=== PATIENT | female | born 1995 | race Caucasian/White ===

== ENCOUNTER 2020-09-21 12:27 | Outpatient (REF) | payer MEDICARE, MEDICAID, SELFPAY ==
[2020-09-21 13:55] LABS: MANUAL DIFF FLAG NO
[2020-09-21 14:03] LABS: Basophils Percent Auto 0.1 % (0-2); Eosinophils Percent Auto 0.5 % (0-4); Hematocrit 43.2 % (37-47); Hemoglobin 14.3 g/dl (12.0-16.0); Imm Gran Abs Auto 0.01 X10*3/uL (0.00-0.03); Imm Gran Pct Auto 0.1 % (0.0-0.4); Lymphocytes Absolute Auto 1.9 X10*3/uL (1.2-4.9); Lymphocytes Percent Auto 23.4 % (20-40); Mean Corpuscular HGB Conc 33.1 g/dl (31.0-35.0); Mean Corpuscular Hemoglobin 29.4 pg (27.0-33.0); Mean Corpuscular Volume 88.7 fL (80-98); Mean Platelet Volume 9.5 fL (9.4-12.3); Monocytes Absolute Auto 0.3 X10*3/uL (0.1-1.2); Monocytes Percent Auto 3.8 % (2-11); Neutrophils Absolute Auto 5.8 X10*3/uL (2.0-8.3); Neutrophils Percent Auto 72.1 % (45-73); Platelet Count 281 X10*3/uL (160-400); Red Blood Count 4.87 X10*6/uL (4.20-5.50); Red Cell Distribution Width 11.3 % (11.0-16.0); White Blood Count 8.1 X10*3/uL (4.8-10.8)
[2020-09-21 14:35] LABS: Alanine Aminotransferase 13 U/L (0-31); Anion Gap 12 (12-20); Aspartate Amino Transferase 16 U/L (5-31); Blood Urea Nitrogen 9 mg/dL (9-16); Calcium 9.4 mg/dL (8.4-10.2); Carbon Dioxide 27 mmol/L (22-29); Chloride 105 mmol/L (96-108); Cholesterol 155 mg/dL; Estimated Glomerular Filt Rate > 60; Glucose Fasting 92 mg/dL (60-99); HDL Cholesterol 51 mg/dL; LDL Cholesterol Calculated 94 mg/dl; Potassium 4.3 mmol/L (3.3-5.1); Sodium 140 mmol/L (135-145); Triglycerides 50 mg/dL
[2020-09-21 14:58] LABS: TSH reflex Free T4 1.65 uIU/mL (0.32-4.0); Vitamin D 25-OH Total 15.1 ng/mL (>30)
== END 2020-09-21 12:28 | disposition home or self-care (01) ==
LOC: HO.HMGCLDS 12:27
PROVIDERS: PCP Internal Medicine; Visit Provider Internal Medicine
DX: Z00.01 Encounter for general adult medical examination with abnormal findings (principal); I10 Essential (primary) hypertension; R00.2 Palpitations
CPT/HCPCS: 36415; 80048; 80061; 82306; 84443; 84450; 84460; 85025

== ENCOUNTER 2023-04-04 15:39 | Outpatient (AMB) | payer OTHER, SELFPAY ==
--- NOTE | 2023-04-04 15:40 | A.OFFPC_ITS ---
Vital Signs 04/04/23 15:41 Height 5 ft 3 in Weight 219 lb BMI 38.8 BP 112/78 Blood Pressure Location Lt brachial Position Sitting Pulse 81 Pulse Source Pulse Oximeter Temp Source Skin Pulse Oximetry (%) 98 Oxygen Delivery Method Room Air Intake Visit Reasons: Transfer of care [facility] Intake Note: Patient is a new patient here to establish care Director Music Required: No Allergies No Known Allergies [No Known Allergies*] Allergy (Verified 04/04/23 15:54) Medication List - Last Reconciled 04/04/23 by ANAND Garces bupropion HCl mg PO etonogestrel (Nexplanon) subdermal Tobacco use date assessed: 04/04/23 Dental Screening Dental Screen Date: 04/04/23 Did you have a dental visit in the last 12 months?: Yes Did you have a dental problem in the last 6 months where you did not have access to dental care?: No Was dental information given to patient?: Patient has dentist HPI Transfer of care [facility] HPI Details Patient is a 28-year-old female who presents today to transfer care from Dr. Lemus. Medical history significant for anxiety-followed by Psychiatry Dr. Kitchen and therapist, IBS-reports abdominal bloating and diarrhea for few years now-reports watery bowel movement yesterday-would like to be seen by GI specialist, obesity-interested in weight management referral. A lso reports has Nexplanon and would like to be seen by gynecology for control management. Patient also reports issues with menstrual cycles, reports hot flashes - interested in obstetrics and gynecology professor consult. [facility] No shortness of breath or chest pain. [facility] Medical History Generalized anxiety disorder IBS (irritable bowel syndrome) Intermittent palpitations Obesity (BMI 30-39.9) Vitamin D deficiency Surgical History History of hemorrhoidectomy History of incision and drainage Family History Father CAD (coronary artery disease) HTN (hypertension) Bipolar disorder Substance use disorder Mental health disorder Mother Thyroid disorder Bipolar disorder Substance use disorder Mental health disorder Maternal Aunt Bipolar disorder Substance use disorder Mental health disorder Maternal Uncle Myocardial infarction Bipolar disorder Substance use disorder Mental health disorder Paternal Aunt Bipolar disorder Substance use disorder Mental health disorder Paternal Uncle Bipolar disorder Substance use disorder Mental health disorder Social History Housing: House Alcohol intake: never Patient Tobacco Use Status: Never used Tobacco e-Cigarette/Vaping Use: Never Used service: No Current occupational status: employed and unemployed Cognitive needs: No Hearing needs: No Vision needs: No Questionnaire PHQ-9 Over the last 2 weeks, how often have you been bothered by any of the following problems? 1. Little interest or pleasure in doing things: several days 2. Feeling down, depressed, or hopeless: several days 3. Trouble falling or staying asleep, or sleeping too much: not at all 4. Feeling tired or having little energy: not at all 5. Poor appetite or overeating: not at all 6. Feeling bad about yourself - or that you are a failure or have let yourself or your family down: not at all 7. Trouble concentrating on things, such as reading the newspaper or watching television: not at all 8. Moving or speaking so slowly that other people could have noticed. Or the opposite - being so fidgety or restless that you have been moving around a lot more than usual: not at all 9. Thoughts that you would be better off or of hurting yourself in some way: not at all Total score: 2 Depression Screening Interpretation: Negative 13253 - PHQ-9 Billing: Yes Source: Developed by Drs. Shashank Modi, Macrina Goldstein, Rupert Carbajal and colleagues, with an educational khoa from [employer]. Thrive Questionnaire Date Thrive assessed: 04/04/23 I am a: Patient What is your living situation today?: I have a steady place to live Within the past 12 months, did the food you bought not last and you didn't have the money to get more?: Never true Within the past 12 months, did you worry whether your food would run out before you got money to buy more?: Never true Do you have trouble paying for medicines?: No Do you have trouble getting transportation to medical appointments?: No Do you have trouble paying your heating and electricity bill?: No Do you have trouble taking care of your child, family member or friend?: No Do you have trouble with day-to-day activities such as bathing, preparing meals, shopping, managing finances, etc.?: No Are you currently unemployed and looking for a job?: No Are you interested in more education?: No Currently or been in a relationship where the following occur: no concerns reported AUDIT C Alcohol Use Questionnaire (AUDIT-C) 1. How often do you have a drink containing alcohol?: Never Total Score: 0 Score Reviewed/Action Taken: No VELIA-7 AMB Questionnaire VELIA-7 Date VELIA - 7 assessed: 04/04/23 Feeling nervous, anxious, or on edge: 3 = Nearly every day Not being able to stop or control worryin = Nearly every day Worrying too much about different things: 0 = Not at all Trouble relaxin = Not at all Being so restless that it is hard to sit still: 0 = Not at all Becoming easily annoyed or irritable: 0 = Not at all Feeling afraid as if something awful might happen: 0 = Not at all Total VELIA-7 score (0-4 normal; 5-9 mild; 10-14 moderate; 15-21 severe): 6 Source: Developed by Drs. Shashank Modi, Macrina Goldstein, Rupert Carbajal and colleagues, with an educational khoa from [employer]. VELIA-7 Assessment Billing VELIA-7 Assessment Tool: VELAI-7 Assessment 87109 Review of Systems Const Denies body aches, Denies chills, Denies fever(s) and Denies headache(s) Eyes Denies change in vision ENT Denies dizziness, Denies otalgia, Denies headache(s), Denies nasal discharge, Denies sinus pain and Denies sore throat Card Denies chest pain, Denies edema, Denies lightheadedness and Denies dyspnea Resp Denies cough, Denies dyspnea and Denies wheezing GI Denies abdominal pain, Reports bloating, Denies constipation, Reports diarrhea, Denies nausea and Denies vomiting Reports as per HPI and Denies dysuria Musc Denies myalgias, Denies arthralgias and Denies joint swelling Skin/Breast Denies rash Neuro Denies dizziness and Denies headache(s) Aller/Immun Denies wheezing Physical exam (Primary Care) Vital Signs: Last Vital Signs Pulse 81 04/04/23 15:41 BP 112/78 04/04/23 15:41 Pulse Ox 98 04/04/23 15:41 Oxygen Delivery Method Room Air 04/04/23 15:41 BMI result Body Mass Index 38.8 Tobacco/Smoking Status: Tobacco use Status Tobacco use date assessed 04/04/23 04/04/23 15:43 Patient Tobacco Use Status Never used Tobacco 04/04/23 15:43 e-Cigarette/Vaping Use Never Used 04/04/23 15:43 PHQ-9: PHQ-9 Score PHQ-9: Total score 2 04/04/23 15:54 Depression Screening Interpretation: Negative Thrive Assessment: Date of Thrive Assessment Date Thrive assessed 04/04/23 04/04/23 15:43 Currently or been in a relationship where the following occur: no concerns reported Const General: cooperative and no acute distress Orientation/consciousness: patient oriented x3 HENMT Head: Yes normocephalic and Yes atraumatic Ears: TM's normal bilaterally Face and sinus: Yes sinuses nontender Mouth: oropharynx normal and moist mucous membranes Throat: Yes posterior oropharynx normal Eyes General: appearance normal, both eyes and all related structures Pupils: Equal, round and reactive pupils present EOM: EOMs intact bilaterally Neck Neck: Yes normal visual inspection, Yes full ROM and Yes no lymphadenopathy Thyroid: Thyroid normal Resp Effort & Inspection: normal respiratory effort and able to speak in complete sentences Auscultation: clear to auscultation bilaterally, no crackles, no rales, no rhonchi and no wheezes Cardio Rate: regular rate Rhythm: regular rhythm Heart sounds: S1 normal heart sound present, S2 normal heart sound present and no murmurs GI Palpation (GI): Soft to palpation, not firm, Tenderness to palpation present (GI) in the epigastrum (mild ), no guarding, not rigid and no hepatosplenomegaly Auscultation: normal bowel sounds General: No CVA tenderness Back/Spine/Pelvis Back: No CVA tenderness Skin General skin exam: no rashes or lesions noted Neuro General: patient oriented x3 Cranial nerves: Yes Equal, round and reactive pupils present Gait exam (Neuro): Normal gait present Extrem General: Yes full ROM and No edema Assessment and Plan Assessment & Plan (1) control counseling: Code(s): Z30.09 - Encounter for other general counseling and advice on contraception Plan: Gynecology referral (2) Obesity (BMI 30-39.9): Code(s): E66.9 - Obesity, unspecified Plan: Healthy food choices and exercise as tolerated Weight management referral (3) IBS (irritable bowel syndrome): Code(s): K58.9 - Irritable bowel syndrome without diarrhea Plan: GI referral for an evaluation and treatment Start simethicone t.i.d.-q.i.d. p.r.n. for abdominal bloating (4) Generalized anxiety disorder: Comment: Followed by Dr. Henry Kitchen Code(s): F41.1 - Generalized anxiety disorder Plan: Continue to follow-up with Psychiatry Dr. Kitchen and therapist Plan Follow-up in 6 months for PE Orders: Orders Vitamin B12 and Folate 04/04/23 K58.9 - Irritable bowel syndrome without diarrhea Comprehensive [facility]mith. Panel Fast 04/04/23 K58.9 - Irritable bowel syndrome without diarrhea Lipid Panel 04/04/23 K58.9 - Irritable bowel syndrome without diarrhea TSH reflex Free T4 04/04/23 K58.9 - Irritable bowel syndrome without diarrhea Vitamin D 25-OH Total 04/04/23 K58.9 - Irritable bowel syndrome without diarrhea Complete Blood Count Auto Diff 04/04/23 K58.9 - Irritable bowel syndrome without diarrhea Referrals Gastroenterology Referral K58.9 - Irritable bowel syndrome without diarrhea DESKTOP PUBLISHING SPECIALIST Referral Z30.09 - Encounter for other general counseling and advice on contraception Medical Weight Management Referral E66.9 - Obesity, unspecified Tilting Saw Operator Nutrition Referral E66.9 - Obesity, unspecified Medications: New simethicone (Gas Relief (simethicone)) 80 mg PO TID-QID PRN 30 tabs 0RF abdominal distention K58.9 - Irritable bowel syndrome without diarrhea Coding Level of Care Code Est Pt Level 3 (75955) Diagnoses control counseling Z30. Obesity (BMI 30-39.9) E66.9 IBS (irritable bowel syndrome) K58.9 Generalized anxiety disorder F41.1 Additional Codes VELIA-7 Assessment Billing - VELIA-7 Assessment Tool: VELIA-7 Assessment 28914 ([id number])
[2023-04-04 15:41] VITALS: BP 112/78; PULSE 81; O2SAT 98; BMI 38.8
== END 2023-04-04 16:18 | disposition home or self-care (01) ==
PROVIDERS: PCP Nurse Practitioner Family; Visit Provider Nurse Practitioner Family
DX: K58.9 Irritable bowel syndrome, unspecified (principal); E66.9 Obesity, unspecified; F41.1 Generalized anxiety disorder; Z68.38 Body mass index [BMI] 38.0-38.9, adult; Z30.09 Encounter for other general counseling and advice on contraception
CPT/HCPCS: 99213

== ENCOUNTER 2023-05-17 13:10 | Outpatient (AMB) | payer MEDICARE, SELFPAY ==
--- NOTE | 2023-05-17 13:12 | A.OFFVIS_ITS ---
Intake VS Expanded 05/17/23 13:14 05/27/23 20:52 Height 5 ft 3 in 5 ft 3 in Weight 222 lb 14.197 oz 223 lb BMI 39.5 39.5 Intake Visit Reasons: Obesity, unspecified Allergies No Known Allergies [No Known Allergies*] Allergy (Verified 04/04/23 15:54) HPI Nutrition Presentation Details Pt presents for MNT for obesity . The Pt was referred by primary care provider Natasha MICHEL from [facility] Typical meal intake B: refresher from dunking , turkey sausage Croatian muffin L : salad , vegetables , chicken, or shrimp white rice, water D: starch/prot/non starchy veg, water snck: fruit/pretzel/yogurt/chips weekends, no meal routine Food frequency fruits: 0/1/d fish 1 x/wk vegetables 5 x/wk starches > 15 serving/d eoth/smoking denies physical activity : sedentary: once /wk may go to the gym TYS-Plqehzu-Uc.or Equation Height 5 ft 3 in Weight 223 lb Resting Metabolic Rate 1702.02 Calculated Activity Level Sedentary Calories Needed to Maintain Weight 2042.42 Diagnosis Nutrition problem #1 excessive energy intake As related to (etiology) #1 diagnosis As evidenced by (sign/symptom) #1 knowledge deficit of diet Monitoring/Goals Nutrition problem monitoring level of knowledge/skill and weight Learning/Education Readiness to learn good Stages of change contemplation Educational materials provided Yes (meal planning ) Most Recent Diabetes Results: Cholesterol 155 mg/dL 09/21/20 HDL Cholesterol 51 mg/dL 09/21/20 Triglycerides 50 mg/dL 09/21/20 Creatinine 0.73 mg/dL (0.5-1.4) 09/21/20 Blood Urea Nitrogen 9 mg/dL (9-16) 09/21/20 Sodium 140 mmol/L (135-145) 09/21/20 Potassium 4.3 mmol/L (3.3-5.1) 09/21/20 Chloride 105 mmol/L (96-108) 09/21/20 Carbon Dioxide 27 mmol/L (22-29) 09/21/20 Calcium 9.4 mg/dL (8.4-10.2) 09/21/20 AST 16 U/L (5-31) 09/21/20 ALT 13 U/L (0-31) 09/21/20 [facility] Medical History Generalized anxiety disorder IBS (irritable bowel syndrome) Intermittent palpitations Obesity (BMI 30-39.9) Vitamin D deficiency Surgical History History of hemorrhoidectomy History of incision and drainage Family History Father CAD (coronary artery disease) HTN (hypertension) Bipolar disorder Substance use disorder Mental health disorder Mother Thyroid disorder Bipolar disorder Substance use disorder Mental health disorder Maternal Aunt Bipolar disorder Substance use disorder Mental health disorder Maternal Uncle Myocardial infarction Bipolar disorder Substance use disorder Mental health disorder Paternal Aunt Bipolar disorder Substance use disorder Mental health disorder Paternal Uncle Bipolar disorder Substance use disorder Mental health disorder Social History Housing: House Alcohol intake: never Patient Tobacco Use Status: Never used Tobacco e-Cigarette/Vaping Use: Never Used service: No Current occupational status: employed and unemployed Cognitive needs: No Hearing needs: No Vision needs: No Assessment & Plan Assessment & Plan (1) Obesity (BMI 30-39.9): Code(s): E66.9 - Obesity, unspecified Plan: wt: 101 kg Est kcal needs as per MSJ: 2000 (40% carb, 30% protein/fat) Est fluid needs as per 25-30 ml/d: 2500- 3000 Est prot per day as per 1 g/kg bw: 101 Recommend fiber intake : 8-10 g per day and gradually increase to 25-28 g per day for women and 35-38 g for men or as tolerated Recommend sodium intake per day : less than 2000 mg Educated patient on: ( R = reviewed V = verbalizes understanding N/R = needs review N/A = not applicable * Food sources of carbohydrate, adequate serving sizes and its role in various health conditions: R * Differences between complex carbohydrates a simple carbohydrates, role of fiber in diet: R * Differences between types of fats and role in diet (mono on saturated fat fatty acids, saturated fatty acids, trans fats): R * Food sources of sodium in salt and healthy modifications for heart health in kidney health: R * Vitamins and minerals: R * Healthy plate method concept: R = * Physical activity: Benefits a precaution: R Patient Instructions: work on reducing portion size at night time reducing carbs to 30 g or less (yogurt and a fruit practice mindful eating see list of ideas printed Coding Level of Care Code Nutr Indiv Intake (46715) Diagnoses Obesity (BMI 30-39.9) E66.9 Time Spent (min) 30
[2023-05-17 13:14] VITALS: BMI 39.5
[2023-05-27 20:52] VITALS: BMI 39.5
== END 2023-05-17 13:44 | disposition home or self-care (01) ==
PROVIDERS: PCP Nurse Practitioner Family; Visit Provider Dietitian, Registered
DX: E66.9 Obesity, unspecified (principal)

== ENCOUNTER → 2023-05-17 13:10 | Outpatient (BNVA) | payer OTHER, SELFPAY | PROVIDERS: PCP Nurse Practitioner Family; Visit Provider Dietitian, Registered | DX: E66.9 Obesity, unspecified (principal); Z68.39 Body mass index [BMI] 39.0-39.9, adult; Z71.3 Dietary counseling and surveillance | CPT/HCPCS: 97802 ==

== ENCOUNTER 2023-06-01 13:24 | Outpatient (AMB) | payer OTHER, SELFPAY ==
[2023-06-01 13:27] VITALS: BP 120/53; PULSE 70; BMI 39.0
--- NOTE | 2023-06-01 13:27 | MHC.OFFVIS ---
Intake Vital Signs 06/01/23 13:27 Height 5 ft 3 in Weight 220 lb 7.396 oz BMI 39.0 BP 120/53 L Blood Pressure Location Rt brachial Position Sitting Pulse 70 Intake Visit Reasons: Irritable bowel syndrome Allergies No Known Allergies [No Known Allergies*] Allergy (Verified 06/14/23 14:06) HPI Irritable bowel syndrome HPI Details 28-YEAR-OLD FEMALE HERE for initial evaluation of irritable bowel syndrome. She is referred by Natasha Schofield of [facility] primary care. PMX Obesity Palpitations Generalized anxiety disorder * SURGICAL HISTORY Incision and drainage of the right heel Hemorrhoidectomy * ALLERGIES: NKDA * [employer] LABS: No labs since 2020 TODAY'S VISIT The problems started 2-3 years ago, her prior PCP dx'ed her with IBS. She was put on stool softeners and things for bloating. However, the sx only got worse. Her sx are CIC alt with diarrhea and she has severe bloating with anything she eats - mostly in the upper abdomen. She has a hx of hemorrhoids. She feels sx would be better if she could pass gas, but this is difficult. She also had had blood in her stools. She will have RB on the TT about twice a week. The CIC is more often. She has tried Miralax, colace, These did not move her bowels. She is now on simethicone chewable but not passing gas. There is no known FHX of similar sx. No known FHX cRC. Her mother has TSH problems. NO GB problems. She has not had any testing. She eats a lot of veggies with fiber and drinks a lot of water, walks and works out. Will start with labs and TSH, Xr to eval stool burden, trial of senna and titrate. ROV 2 weeks. [facility] Medical History Vitamin D deficiency Obesity (BMI 30-39.9) Intermittent palpitations IBS (irritable bowel syndrome) Generalized anxiety disorder Surgical History History of incision and drainage History of hemorrhoidectomy Family History Father CAD (coronary artery disease) HTN (hypertension) Bipolar disorder Substance use disorder Mental health disorder Mother Thyroid disorder Bipolar disorder Substance use disorder Mental health disorder Maternal Aunt Bipolar disorder Substance use disorder Mental health disorder Maternal Uncle Myocardial infarction Bipolar disorder Substance use disorder Mental health disorder Paternal Aunt Bipolar disorder Substance use disorder Mental health disorder Paternal Uncle Bipolar disorder Substance use disorder Mental health disorder Social History Housing: House Alcohol intake: never Patient Tobacco Use Status: Never used Tobacco e-Cigarette/Vaping Use: Never Used service: No Current occupational status: employed and unemployed Cognitive needs: No Hearing needs: No Vision needs: No Review of Systems Const Denies fatigue, Denies fever(s), Denies night sweats, Denies poor appetite and Denies weight loss Eyes Details: glasses Reports requires corrective lenses ENT Reports Normal hearing present, Denies dental pain, Denies dysphagia, Denies hearing loss, Denies mouth pain, Denies odynophagia, Denies throat swelling, Denies tongue swelling and Reports other (Dentition adequate) Card Reports no additional complaints Resp Reports no additional complaints GI Denies abdominal pain, Denies melena, Reports bloating, Denies hematochezia, Reports constipation, Reports GI cramping, Denies dysphagia, Denies excessive flatus, Denies early satiety, Denies heartburn, Reports diarrhea, Denies nausea, Denies odynophagia, Denies vomiting and Denies hematemesis Skin/Breast Denies pruritus, Denies lesions, Denies rash and Denies jaundice Neuro Reports Normal hearing present and Denies Abnormal speech present Endo Denies fatigue Aller/Immun Denies throat swelling and Denies tongue swelling Physical Exam Vital Signs: Last Vital Signs Pulse 70 06/01/23 13:27 BP 120/53 L 06/01/23 13:27 BMI result Body Mass Index 39.0 Const General: cooperative, no acute distress, well developed and well groomed Nutritional Appearance: well nourished and overweight Orientation/consciousness: oriented to person, oriented to place and oriented to time Limitations: No language barrier HEENT Head: Yes normocephalic and Yes atraumatic Eyes General: appearance normal, both eyes and all related structures Pupils: Equal, round and reactive pupils present Neck Neck: Yes normal visual inspection and Yes no lymphadenopathy Thyroid: Thyroid normal Resp Effort & Inspection: normal respiratory effort and able to speak in complete sentences Auscultation: clear to auscultation bilaterally Cardio Rate: regular rate Rhythm: regular rhythm Heart sounds: Normal, physiologic split S2 sound present Peripheral pulses: radial pulses present and posterior tibial pulses present GI Inspection: No distended, No Abdominal panniculus present and Yes obesity Palpation (GI): Soft to palpation, nontender, no guarding, not rigid and No hepatosplenomegaly present Percussion: Yes normal to percussion Auscultation: normal bowel sounds Rectal Exam - Female: deferred Skin General skin exam: no rashes or lesions noted, turgor normal, skin not dry, no jaundice, No spider nevi and no striae Rashes: no rashes Nails: normal Neuro General: oriented to person, oriented to place and oriented to time Cranial nerves: Yes Equal, round and reactive pupils present and Yes Normal hearing present Speech: No Abnormal speech present Extrem General: Yes normal to inspection, No clubbing, No cyanosis and No edema Psych Appearance: grossly normal and well kempt Mental Status: mental status grossly normal Speech and movement: Normal speech and movement present Affect: normal affect Attitude: cooperative Thought process: Normal thought process present and not confabulating Thought content: Normal thought content present Insight: Fair insight present (Psych) Judgement: Fair judgement present (Psych) Assessment & Plan Assessment & Plan (1) IBS (irritable bowel syndrome): Code(s): K58.9 - Irritable bowel syndrome without diarrhea Plan: The problems started 2-3 years ago, her prior PCP dx'ed her with IBS. She was put on stool softeners and things for bloating. However, the sx only got worse. Her sx are CIC alt with diarrhea and she has severe bloating with anything she eats - mostly in the upper abdomen. She has a hx of hemorrhoids. She feels sx would be better if she could pass gas, but this is difficult. She also had had blood in her stools. She will have RB on the TT about twice a week. The CIC is more often. She has tried Miralax, colace, These did not move her bowels. She is now on simethicone chewable but not passing gas. There is no known FHX of similar sx. No known FHX cRC. Her mother has TSH problems. NO GB problems. She has not had any testing. She eats a lot of veggies with fiber and drinks a lot of water, walks and works out. Will start with labs and TSH, Xr to eval stool burden, trial of senna and titrate. ROV 2 weeks. (2) Chronic idiopathic constipation: Code(s): K59.04 - Chronic idiopathic constipation Orders: Orders XR abdomen w decubitus 06/01/23 K59.04 - Chronic idiopathic constipation Complete Blood Count Auto Diff 06/01/23 K59.04 - Chronic idiopathic constipation Comprehensive Met. Panel 06/01/23 K59.04 - Chronic idiopathic constipation TSH reflex Free T4 06/01/23 K59.04 - Chronic idiopathic constipation Pancreatic Elastase-1 06/01/23 K59.04 - Chronic idiopathic constipation Medications: New sennosides (Senna Laxative) 17.2 mg (2 x 8.6 mg) PO BEDTIME 60 tabs 3RF Coding Level of Care Code New Pt Level 3 (99971) Diagnoses IBS (irritable bowel syndrome) K58.9 Chronic idiopathic constipation K59.04
--- NOTE | 2023-06-01 13:27 | MHC.OFFVIS ---
Intake Vital Signs 06/01/23 13:27 Height 5 ft 3 in Weight 220 lb 7.396 oz BMI 39.0 BP 120/53 L Blood Pressure Location Rt brachial Position Sitting Pulse 70 Intake Visit Reasons: Irritable bowel syndrome Intake Note: Patient presents to in office visit today CC: She c/o constipation, abdominal bloating, and abdominal pain. Patient reports she was diagnosed a few years ago with IBS by her PCP. She was given stool softener and medication for bloating but she continues to have issues. She states she sometimes has diarrhea and she has seen blood in the stools in the past and hx of hemorrhoids. Patient reports family hx of cancer from her father's side. 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 Accompanied by: Self / Same As Patient Allergies No Known Allergies [No Known Allergies*] Allergy (Verified 06/01/23 13:31) [facility] Medical History Vitamin D deficiency Obesity (BMI 30-39.9) Intermittent palpitations IBS (irritable bowel syndrome) Generalized anxiety disorder Surgical History History of incision and drainage History of hemorrhoidectomy Family History Father CAD (coronary artery disease) HTN (hypertension) Bipolar disorder Substance use disorder Mental health disorder Mother Thyroid disorder Bipolar disorder Substance use disorder Mental health disorder Maternal Aunt Bipolar disorder Substance use disorder Mental health disorder Maternal Uncle Myocardial infarction Bipolar disorder Substance use disorder Mental health disorder Paternal Aunt Bipolar disorder Substance use disorder Mental health disorder Paternal Uncle Bipolar disorder Substance use disorder Mental health disorder Social History Housing: House Alcohol intake: never Patient Tobacco Use Status: Never used Tobacco e-Cigarette/Vaping Use: Never Used service: No Current occupational status: employed and unemployed Cognitive needs: No Hearing needs: No Vision needs: No Coding
== END 2023-06-01 14:01 | disposition home or self-care (01) ==
PROVIDERS: PCP Nurse Practitioner Family; Visit Provider Nurse Practitioner
DX: K58.9 Irritable bowel syndrome, unspecified (principal); K59.04 Chronic idiopathic constipation
CPT/HCPCS: 99203

== ENCOUNTER 2023-06-01 13:24 | Outpatient (REF) | payer OTHER, SELFPAY ==
--- NOTE | ~2023-06-01 | XR_ITS ---
EXAMINATION: XR ABDOMEN WITH DECUBITUS VIEWS CLINICAL INDICATION: Chronic idiopathic constipation. COMPARISON: None available. TECHNIQUE: 6 views of the abdomen. FINDINGS: Nonobstructive bowel gas pattern. Rounded coils overlie the medial left upper quadrant. Moderate amount of stool in the colon. XR/XR abdomen w decubitus IMPRESSION: Nonobstructive bowel gas pattern. Moderate amount of stool in the colon. Rounded coils overlie the medial left upper quadrant. Correlation with clinical exam recommended to determine etiology.
[2023-06-01 15:21] LABS: MANUAL DIFF FLAG NO
[2023-06-01 15:29] LABS: Basophils Percent Auto 0.4 % (0-2); Eosinophils Absolute Auto 0.1 X10*3/uL (0.0-0.4); Eosinophils Percent Auto 0.5 % (0-4); Hematocrit 42.1 % (37.0-47.0); Hemoglobin 13.9 g/dl (12.0-16.0); Imm Gran Abs Auto 0.02 X10*3/uL (0.00-0.03); Imm Gran Pct Auto 0.2 % (0.0-0.4); Lymphocytes Absolute Auto 2.3 X10*3/uL (1.2-4.9); Lymphocytes Percent Auto 24.5 % (20-40); Mean Corpuscular Volume 87.7 fL (80.0-98.0); Mean Platelet Volume 8.9 fL (9.4-12.3); Monocytes Absolute Auto 0.4 X10*3/uL (0.1-1.2); Neutrophils Absolute Auto 6.7 x10*3/uL (2.0-8.3); Neutrophils Percent Auto 70.4 % (45-73); Platelet Count 293 X10*3/uL (160-400); Red Cell Distribution Width 11.6 % (11.0-16.0); White Blood Count 9.5 X10*3/uL (4.8-10.8)
[2023-06-01 16:19] LABS: Alanine Aminotransferase 13 U/L (0-31); Albumin Level 4.5 g/dL (3.5-5.0); Alkaline Phosphatase 55 U/L (39-117); Anion Gap 12 (12-20); Aspartate Amino Transferase 15 U/L (5-31); Bilirubin Total 0.3 mg/dL (0.0-1.0); Blood Urea Nitrogen 13 mg/dL (9-16); Calcium 10.2 mg/dL (8.4-10.2); Carbon Dioxide 27 mmol/L (22-29); Chloride 105 mmol/L (96-108); Estimated Glomerular Filt Rate > 60; Glucose Random 92 mg/dL (60-115); Potassium 4.3 mmol/L (3.3-5.1); Sodium 140 mmol/L (135-145); Total Protein 7.4 g/dL (6.5-8.0)
[2023-06-01 16:29] LABS: TSH reflex Free T4 1.18 uIU/mL (0.32-4.0)
== END 2023-06-01 13:25 | disposition home or self-care (01) ==
LOC: HO.LAB 13:24
PROVIDERS: PCP Nurse Practitioner Family; Visit Provider Nurse Practitioner
DX: K59.04 Chronic idiopathic constipation (principal); K58.9 Irritable bowel syndrome, unspecified
CPT/HCPCS: 36415; 74021; 80053; 84443; 85025

== ENCOUNTER 2023-06-12 09:39 | Outpatient (REF) | payer OTHER, SELFPAY ==
[2023-06-12 10:02] LABS: MANUAL DIFF FLAG NO
[2023-06-12 11:33] LABS: Basophils Percent Auto 0.3 % (0-2); Eosinophils Absolute Auto 0.1 X10*3/uL (0.0-0.4); Eosinophils Percent Auto 1.2 % (0-4); Hemoglobin 14.1 g/dl (12.0-16.0); Imm Gran Abs Auto 0.02 X10*3/uL (0.00-0.03); Imm Gran Pct Auto 0.3 % (0.0-0.4); Lymphocytes Absolute Auto 1.9 X10*3/uL (1.2-4.9); Lymphocytes Percent Auto 31.9 % (20-40); Mean Corpuscular HGB Conc 32.8 g/dl (31.0-35.0); Mean Corpuscular Hemoglobin 29.1 pg (27.0-33.0); Mean Corpuscular Volume 88.8 fL (80.0-98.0); Mean Platelet Volume 9.6 fL (9.4-12.3); Monocytes Absolute Auto 0.3 X10*3/uL (0.1-1.2); Monocytes Percent Auto 5.3 % (2-11); Neutrophils Absolute Auto 3.7 x10*3/uL (2.0-8.3); Platelet Count 288 X10*3/uL (160-400); Red Blood Count 4.84 X10*6/uL (4.20-5.50); Red Cell Distribution Width 11.5 % (11.0-16.0); White Blood Count 6.1 X10*3/uL (4.8-10.8)
[2023-06-12 12:12] LABS: Alanine Aminotransferase 11 U/L (0-31); Albumin Level 4.2 g/dL (3.5-5.0); Alkaline Phosphatase 49 U/L (39-117); Anion Gap 11 (12-20); Aspartate Amino Transferase 13 U/L (5-31); Bilirubin Total 0.4 mg/dL (0.0-1.0); Blood Urea Nitrogen 11 mg/dL (9-16); Calcium 9.7 mg/dL (8.4-10.2); Carbon Dioxide 27 mmol/L (22-29); Chloride 108 mmol/L (96-108); Cholesterol 161 mg/dL (<200); Estimated Glomerular Filt Rate > 60; Glucose Fasting 91 mg/dL (60-99); HDL Cholesterol 46 mg/dL (>40); LDL Cholesterol Calculated 102 mg/dL (<100); Potassium 4.4 mmol/L (3.3-5.1); Sodium 142 mmol/L (135-145); Total Protein 6.9 g/dL (6.5-8.0); Triglycerides 66 mg/dL (<150)
[2023-06-12 12:42] LABS: TSH reflex Free T4 1.07 uIU/mL (0.32-4.0); Vitamin D 25-OH Total 24.5 ng/mL (>30)
[2023-06-12 12:53] LABS: Folate 9.6 ng/mL (> or = 4.0); Vitamin B12 384 pg/mL (200-900)
== END 2023-06-12 09:40 | disposition home or self-care (01) ==
LOC: HO.LAB 09:39
PROVIDERS: PCP Nurse Practitioner Family; Visit Provider Nurse Practitioner Family
DX: K58.9 Irritable bowel syndrome, unspecified (principal); E55.9 Vitamin D deficiency, unspecified; F41.1 Generalized anxiety disorder; K59.04 Chronic idiopathic constipation
CPT/HCPCS: 36415; 80053; 80061; 82306; 82607; 82746; 84443; 85025

== ENCOUNTER 2023-06-14 13:59 | Outpatient (AMB) | payer OTHER, SELFPAY ==
[2023-06-14 14:03] VITALS: BP 121/70; PULSE 79; BMI 39.0
--- NOTE | 2023-06-14 14:03 | MHC.OFFVIS ---
Intake Vital Signs 06/14/23 14:03 Height 5 ft 3 in Weight 220 lb 0.341 oz BMI 39.0 BP 121/70 Blood Pressure Location Rt brachial Position Sitting Pulse 79 Intake Visit Reasons: 2 week follow up Intake Note: Patient presents to in office visit today in follow up of Xray and labs. CC: Patient states she has been doing a little bit better with Senna but she has not been able to produce a stool sample yet for stool test ordered. 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 She was put on stool softeners and things for bloating. However, the sx only got worse. Her sx are CI alt with diarrhea and she has severe bloating with anything she eats - mostly in the upper abdomen. She has a hx of roinds. She feels sx would be better if she could pass gas, but this is difficult. She also had had blood in her stoo;ls. She will have RB on the TT about twice a week. The CIC is more often. She has tried Miralax, colace, These did not move her bowels. She is now on simethicone chewable but not passing gas. There is no known FHX of similar sx. No known FHX cRC. Her mother has TSH problems. NO GB problems. She has not had any testing. She eats a lot of veggies with fiber and drinks a lot of water, walks and works out. WIll start wiht labs and TSH, Xr to eval stool burden, trial of senna and titrate. ROV 2 weeks. Assessment & Plan (1) IBS (irritable bowel syndrome): Code(s): K58.9 - Irritable bowel syndrome without diarrhea (2) Chronic idiopathic constipation: Code(s): K59.04 - Chronic idiopathic constipation Orders: Orders XR abdomen w decub itus Today K59.04 - Chronic i diopathic constipa tion Complete Blood Cou nt Auto Diff Today K59.04 - Chronic i diopathic constipa tion Comprehensive Met. Panel Today K59.04 - Chronic i diopathic constipa tion TSH reflex Free T4 Today K59.04 - Chronic i diopathic constipa tion Pancreatic Elastas e-1 Today K59.04 - Chronic i diopathic constipa tion Medications: New sennosides (Senna Laxative) 17.2 mg (2 x 8.6 m g) PO BEDTIME 60 t abs 3RF LABS: Laboratory Tests 06/12/23 10:00 WBC 6.1 Hgb 14.1 Hct 43.0 Plt Count 288 Estimated GFR > 60 Total Bilirubin 0.4 AST 13 ALT 11 Alkaline Phosphata se 49 TSH 1.07 THE PANCREATIC ELASTASE HAS NOT BEEN OBTAINED. X-RAY OF THE ABDOMEN WITH DECUBITUS 06/05/23 ADDENDUMThere are ringlike rounded densities in the medial left upper quadrant which were not present on radiographs of the lumbar spine of January 30, 2014. Etiology is uncertain. These coils were visualized on 2 of the images, but were not visualized on the 6th image, suggesting that they were external to the patient. Recommend correlation with the clinical exam and evaluation with the patient for confirmation. EXAMINATION: XR ABDOMEN WITH DECUBITUS VIEWS CLINICAL INDICATION: Chronic idiopathic constipation. COMPARISON: None available. TECHNIQUE: 6 views of the abdomen. FINDINGS: Nonobstructive bowel gas pattern. Rounded coils overlie the medial left upper quadrant. Moderate amount of stool in the colon. XR/XR abdomen w decubitus IMPRESSION: Nonobstructive bowel gas pattern. Moderate amount of stool in the colon. Rounded coils overlie the medial left upper quadrant. Correlation with clinical exam recommended to determine etiology. TODAY'S VISIT We reviewed the x-ray and denies any implant of anything on the outside of her body that would produce the coils. She is using the senna, but with 2 qhs she is not moving her bowels daily. We will progress to Bisacodyl next. ROV 3 weeks. [facility], [facility] Medical History Vitamin D deficiency Obesity (BMI 30-39.9) Intermittent palpitations IBS (irritable bowel syndrome) Generalized anxiety disorder Surgical History History of incision and drainage History of hemorrhoidectomy Family History Father CAD (coronary artery disease) HTN (hypertension) Bipolar disorder Substance use disorder Mental health disorder Mother Thyroid disorder Bipolar disorder Substance use disorder Mental health disorder Maternal Aunt Bipolar disorder Substance use disorder Mental health disorder Maternal Uncle Myocardial infarction Bipolar disorder Substance use disorder Mental health disorder Paternal Aunt Bipolar disorder Substance use disorder Mental health disorder Paternal Uncle Bipolar disorder Substance use disorder Mental health disorder Social History Housing: House Alcohol intake: never Patient Tobacco Use Status: Never used Tobacco e-Cigarette/Vaping Use: Never Used service: No Current occupational status: employed and unemployed Cognitive needs: No Hearing needs: No Vision needs: No Review of Systems Const Denies fatigue, Denies fever(s), Denies night sweats, Denies poor appetite and Denies weight loss Eyes Details: glasses Reports requires corrective lenses ENT Reports Normal hearing present, Denies dental pain, Denies dysphagia, Denies hearing loss, Denies mouth pain, Denies odynophagia, Denies throat swelling, Denies tongue swelling and Reports other (Dentition adequate) Card Reports no additional complaints Resp Reports no additional complaints GI Denies abdominal pain, Denies melena, Reports bloating, Denies hematochezia, Reports constipation, Denies GI cramping, Denies dysphagia, Denies excessive flatus, Denies early satiety, Denies heartburn, Denies diarrhea, Denies nausea, Denies odynophagia, Denies vomiting and Denies hematemesis Skin/Breast Denies pruritus, Denies lesions, Denies rash and Denies jaundice Neuro Reports Normal hearing present and Denies Abnormal speech present Endo Denies fatigue Aller/Immun Denies throat swelling and Denies tongue swelling Physical Exam Vital Signs: Last Vital Signs Pulse 79 06/14/23 14:03 BP 121/70 06/14/23 14:03 BMI result Body Mass Index 39.0 Const General: cooperative, no acute distress, well developed and well groomed Nutritional Appearance: well nourished and obese Orientation/consciousness: oriented to person, oriented to place and oriented to time Limitations: No language barrier HEENT Head: Yes normocephalic and Yes atraumatic Eyes General: appearance normal, both eyes and all related structures Pupils: Equal, round and reactive pupils present Neck Neck: Yes normal visual inspection and Yes no lymphadenopathy Thyroid: Thyroid normal Resp Effort & Inspection: normal respiratory effort and able to speak in complete sentences Auscultation: clear to auscultation bilaterally Cardio Rate: regular rate Rhythm: regular rhythm Heart sounds: Normal, physiologic split S2 sound present Peripheral pulses: radial pulses present and posterior tibial pulses present GI Inspection: No distended, No Abdominal panniculus present and Yes obesity Palpation (GI): Soft to palpation, nontender, no guarding, not rigid and No hepatosplenomegaly present Percussion: Yes normal to percussion Auscultation: normal bowel sounds Rectal Exam - Female: deferred Skin General skin exam: no rashes or lesions noted, turgor normal, skin not dry, no jaundice, No spider nevi and no striae Rashes: no rashes Nails: normal Neuro General: oriented to person, oriented to place and oriented to time Cranial nerves: Yes Equal, round and reactive pupils present and Yes Normal hearing present Speech: No Abnormal speech present Extrem General: Yes normal to inspection, No clubbing, No cyanosis and No edema Psych Appearance: grossly normal and well kempt Mental Status: mental status grossly normal Speech and movement: Normal speech and movement present Affect: normal affect Attitude: cooperative Thought process: Normal thought process present and not confabulating Thought content: Normal thought content present Insight: Limited insight present (Psych) Judgement: Limited judgement present (Psych) Assessment & Plan Assessment & Plan (1) Chronic idiopathic constipation: Code(s): K59.04 - Chronic idiopathic constipation Plan: We reviewed the x-ray and denies any implant of anything on the outside of her body that would produce the coils. She is using the senna, but with 2 qhs she is not moving her bowels daily. We will progress to Bisacodyl next. ROV 3 weeks. (2) IBS (irritable bowel syndrome): Code(s): K58.9 - Irritable bowel syndrome without diarrhea Medications: New bisacodyl (Dulcolax (bisacodyl)) 10 mg (2 x 5 mg) PO BEDTIME 60 tabs 6RF 30 days K59.04 - Chronic idiopathic constipation On Hold sennosides Hold Comment: Doctor's Order 17.2 mg (2 x 8.6 mg) PO BEDTIME 60 tabs 3RF Coding Level of Care Code Est Pt Level 3 (34725) Diagnoses Chronic idiopathic constipation K59.04 IBS (irritable bowel syndrome) K58.9
== END 2023-06-14 14:38 | disposition home or self-care (01) ==
PROVIDERS: PCP Nurse Practitioner Family; Visit Provider Nurse Practitioner
DX: K59.04 Chronic idiopathic constipation (principal); K58.9 Irritable bowel syndrome, unspecified
CPT/HCPCS: 99213

== ENCOUNTER → 2023-06-14 13:59 | Outpatient (BNVA) | payer OTHER, SELFPAY | PROVIDERS: PCP Nurse Practitioner Family; Visit Provider Nurse Practitioner ==

== ENCOUNTER 2023-07-04 13:46 | Outpatient (AMB) | payer OTHER, SELFPAY ==
[2023-07-04 14:14] VITALS: BMI 39.0
--- NOTE | 2023-07-04 14:14 | A.OFFVIS_ITS ---
Intake VS Expanded 07/04/23 14:14 Height 5 ft 3 in Weight 220 lb 7.396 oz BMI 39.0 Intake Visit Reasons: obesity Allergies No Known Allergies [No Known Allergies*] Allergy (Verified 07/12/23 11:07) HPI Nutrition Presentation Details Pt presents for MNT for obesity. Pt was referred by José Schofield, PCP Pt reports working on having 3 meals per day and increasing water. has meal substitutions instead of skipping meals food frequency fruits/d: 0-1 fish: 0-2/m fried foods: 0-1/m non starchy ve-2/d Physical activity: DLA ETOH: occ DJE-Cubswlf-Cq.Jeor Equation Height 5 ft 3 in Weight 220 lb Resting Metabolic Rate 1688.43 Calculated Activity Level Sedentary Calories Needed to Maintain Weight 2025.12 Diagnosis Nutrition problem #1 overweight/obesity As related to (etiology) #1 lack of nutrit education As evidenced by (sign/symptom) #1 no prior educ - nutri rec Most Recent Diabetes Results: Cholesterol 161 mg/dL (<200) 06/12/23 HDL Cholesterol 46 mg/dL (>40) 06/12/23 Triglycerides 66 mg/dL (<150) 06/12/23 Creatinine 0.74 mg/dL (0.5-1.4) 06/12/23 Blood Urea Nitrogen 11 mg/dL (9-16) 06/12/23 Sodium 142 mmol/L (135-145) 06/12/23 Potassium 4.4 mmol/L (3.3-5.1) 06/12/23 Chloride 108 mmol/L (96-108) 06/12/23 Carbon Dioxide 27 mmol/L (22-29) 06/12/23 Calcium 9.7 mg/dL (8.4-10.2) 06/12/23 AST 13 U/L (5-31) 06/12/23 ALT 11 U/L (0-31) 06/12/23 Total Protein 6.9 g/dL (6.5-8.0) 06/12/23 Albumin 4.2 g/dL (3.5-5.0) 06/12/23 [facility] Medical History Vitamin D deficiency Obesity (BMI 30-39.9) Intermittent palpitations IBS (irritable bowel syndrome) Generalized anxiety disorder Surgical History History of incision and drainage History of hemorrhoidectomy Family History Father CAD (coronary artery disease) HTN (hypertension) Bipolar disorder Substance use disorder Mental health disorder Mother Thyroid disorder Bipolar disorder Substance use disorder Mental health disorder Maternal Aunt Bipolar disorder Substance use disorder Mental health disorder Maternal Uncle Myocardial infarction Bipolar disorder Substance use disorder Mental health disorder Paternal Aunt Bipolar disorder Substance use disorder Mental health disorder Paternal Uncle Bipolar disorder Substance use disorder Mental health disorder Social History Housing: House Alcohol intake: never Patient Tobacco Use Status: Never used Tobacco e-Cigarette/Vaping Use: Never Used service: No Current occupational status: employed and unemployed Cognitive needs: No Hearing needs: No Vision needs: No Assessment & Plan Assessment & Plan (1) Obesity (BMI 30-39.9): Code(s): E66.9 - Obesity, unspecified Plan: wt: 101 kg Est kcal needs as per MSJ: 2000 (40% carb, 30% protein/fat) Est fluid needs as per 25-30 ml/d: 2500- 3000 Est prot per day as per 1 g/kg bw: 101 Recommend fiber intake : 8-10 g per day and gradually increase to 25-28 g per day for women and 35-38 g for men or as tolerated Recommend sodium intake per day : less than 2000 mg Educated patient on: ( R = reviewed V = verbalizes understanding N/R = needs review N/A = not applicable * Food sources of carbohydrate, adequate serving sizes and its role in various health conditions: R * Differences between complex carbohydrates a simple carbohydrates, role of fiber in diet: R * Differences between types of fats and role in diet (mono on saturated fat fatty acids, saturated fatty acids, trans fats): R * Food sources of sodium in salt and healthy modifications for heart health in kidney health: R * Vitamins and minerals: R * Healthy plate method concept: R = * Physical activity: Benefits a precaution: R Patient Instructions: Increase on fluids try to aim at 13 cups/day by having water with meals/snack instead of sugar containing beverages (flavored , low or no sugar water /tea ok ) Continue working on mindful eating strategies , following healthy plate method keep food record and bring to next f/u t Coding Level of Care Code Nutr Indiv Subseq (31015) Diagnoses Obesity (BMI 30-39.9) E66.9 Time Spent (min) 30
[2023-07-17 21:33] VITALS: BMI 39.0
== END 2023-07-04 14:35 | disposition home or self-care (01) ==
PROVIDERS: PCP Nurse Practitioner Family; Visit Provider Dietitian, Registered
DX: E66.9 Obesity, unspecified (principal)

== ENCOUNTER → 2023-07-04 13:46 | Outpatient (BNVA) | payer OTHER, SELFPAY | PROVIDERS: PCP Nurse Practitioner Family; Visit Provider Dietitian, Registered | DX: E66.9 Obesity, unspecified (principal); Z68.39 Body mass index [BMI] 39.0-39.9, adult; Z71.3 Dietary counseling and surveillance | CPT/HCPCS: 97803 ==

== ENCOUNTER 2023-07-12 10:59 | Outpatient (REF) | payer OTHER, SELFPAY ==
[2023-07-19 22:19] LABS: Pancreatic Elastase-1 >500 mcg/g
== END 2023-07-12 11:00 | disposition home or self-care (01) ==
LOC: CF 10:59
PROVIDERS: PCP Nurse Practitioner Family; Visit Provider Nurse Practitioner
DX: K59.04 Chronic idiopathic constipation (principal); K58.9 Irritable bowel syndrome, unspecified
CPT/HCPCS: 82656

== ENCOUNTER 2023-07-12 10:59 | Outpatient (AMB) | payer OTHER, SELFPAY ==
--- NOTE | 2023-07-12 10:58 | MHC.OFFVIS ---
Intake Vital Signs 07/12/23 11:03 Height 5 ft 3 in Weight 218 lb 11.177 oz BMI 38.7 BP 104/54 L Blood Pressure Location Rt brachial Position Sitting Pulse 69 Intake Visit Reasons: follow up CIC Intake Note: Patient presents in follow up of CIC. CC: Patient states the Dulcolax helps her with constipation as long as she takes it, but it gives her abd cramps and diarrhea. She also reports bloating. 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: No Allergies No Known Allergies [No Known Allergies*] Allergy (Verified 07/12/23 11:07) HPI follow up CIC HPI Details Assessment & Plan (1) Chronic idiopathic constipation: Code(s): K59.04 - Chronic idiopathic constipation (2) IBS (irritable bowel syndrome): Code(s): K58.9 - Irritable bowel syndrome without diarrhea Medications: New bisacodyl (Dulcola x (bisacodyl)) 10 mg (2 x 5 mg) P O BEDTIME 30 days 60 tabs 6RF K59.04 - Chronic i diopathic constipa tion On Hold sennosides (Senna Laxative) Hold Comment: Doctor's Order 17.2 mg (2 x 8.6 m g) PO BEDTIME 60 t abs 3RF She denies any implant of anything on the outside of her body that would produce the coils. She is using the senna, but with 2 qhs she is not moving her bowels daily. We will progress to Bisacodyl next. ROV 3 weeks. TODAY'S VISIT The bisacodyl is moving her bowels every day, but she will wake up with bowel cramping and some nausea. The cramping will resolve for a couple of hours, then if she eats the bloating and discomfort will return. She is moving pure liquid stools. She brought her stool samples today as well. SO, I suggest that she go down to 1 senna and I and will see if we can get more formed stools. I am concerned that she still having bloating after eating and I suspect there is an element of pancreatic insufficiency and I suggest we started digestive enzyme. With this will start Creon 2 tabs twice a day. Return office visit in 6 weeks [facility] Medical History Vitamin D deficiency Obesity (BMI 30-39.9) Intermittent palpitations IBS (irritable bowel syndrome) Generalized anxiety disorder Surgical History History of incision and drainage History of hemorrhoidectomy Family History Father CAD (coronary artery disease) HTN (hypertension) Bipolar disorder Substance use disorder Mental health disorder Mother Thyroid disorder Bipolar disorder Substance use disorder Mental health disorder Maternal Aunt Bipolar disorder Substance use disorder Mental health disorder Maternal Uncle Myocardial infarction Bipolar disorder Substance use disorder Mental health disorder Paternal Aunt Bipolar disorder Substance use disorder Mental health disorder Paternal Uncle Bipolar disorder Substance use disorder Mental health disorder Social History Housing: House Alcohol intake: never Patient Tobacco Use Status: Never used Tobacco e-Cigarette/Vaping Use: Never Used service: No Current occupational status: employed and unemployed Cognitive needs: No Hearing needs: No Vision needs: No Review of Systems Const Denies fatigue, Denies fever(s), Denies night sweats, Denies poor appetite and Denies weight loss Eyes Details: glasses Reports requires corrective lenses ENT Reports Normal hearing present, Denies dental pain, Denies dysphagia, Denies hearing loss, Denies mouth pain, Denies odynophagia, Denies throat swelling, Denies tongue swelling and Reports other (Dentition adequate) Card Reports no additional complaints Resp Reports no additional complaints GI Denies abdominal pain, Denies melena, Reports bloating, Denies hematochezia, Reports constipation, Reports GI cramping, Denies dysphagia, Denies excessive flatus, Denies early satiety, Denies heartburn, Reports diarrhea, Denies nausea, Denies odynophagia, Denies vomiting and Denies hematemesis Skin/Breast Denies pruritus, Denies lesions, Denies rash and Denies jaundice Neuro Reports Normal hearing present and Denies Abnormal speech present Endo Denies fatigue Aller/Immun Denies throat swelling and Denies tongue swelling Physical Exam Vital Signs: Last Vital Signs Pulse 69 07/12/23 11:03 BP 104/54 L 07/12/23 11:03 BMI result Body Mass Index 38.7 Const General: cooperative, no acute distress, well developed and well groomed Nutritional Appearance: well nourished and obese morbidly obese Orientation/consciousness: oriented to person, oriented to place and oriented to time Limitations: No language barrier HEENT Head: Yes normocephalic and Yes atraumatic Eyes General: appearance normal, both eyes and all related structures Pupils: Equal, round and reactive pupils present Neck Neck: Yes normal visual inspection and Yes no lymphadenopathy Thyroid: Thyroid normal Resp Effort & Inspection: normal respiratory effort and able to speak in complete sentences Auscultation: clear to auscultation bilaterally Cardio Rate: regular rate Rhythm: regular rhythm Heart sounds: Normal, physiologic split S2 sound present Peripheral pulses: radial pulses present and posterior tibial pulses present GI Inspection: No distended, Yes Abdominal panniculus present and Yes obesity Palpation (GI): Soft to palpation, nontender, no guarding, not rigid and No hepatosplenomegaly present Percussion: Yes normal to percussion Auscultation: normal bowel sounds Rectal Exam - Female: deferred Skin General skin exam: no rashes or lesions noted, turgor normal, skin not dry, no jaundice, No spider nevi and no striae Rashes: no rashes Nails: normal Neuro General: oriented to person, oriented to place and oriented to time Cranial nerves: Yes Equal, round and reactive pupils present and Yes Normal hearing present Speech: No Abnormal speech present Extrem General: Yes normal to inspection, No clubbing, No cyanosis and No edema Psych Appearance: grossly normal and well kempt Mental Status: mental status grossly normal Speech and movement: Normal speech and movement present Affect: normal affect Attitude: cooperative Thought process: Normal thought process present and not confabulating Thought content: Normal thought content present Insight: Fair insight present (Psych) Judgement: Fair judgement present (Psych) Assessment & Plan Assessment & Plan (1) Chronic idiopathic constipation: Code(s): K59.04 - Chronic idiopathic constipation (2) IBS (irritable bowel syndrome): Code(s): K58.9 - Irritable bowel syndrome without diarrhea Plan TODAY'S VISIT The bisacodyl is moving her bowels every day, but she will wake up with bowel cramping and some nausea. The cramping will resolve for a couple of hours, then if she eats the bloating and discomfort will return. She is moving pure liquid stools. She brought her stool samples today as well. SO, I suggest that she go down to 1 senna and I and will see if we can get more formed stools. I am concerned that she still having bloating after eating and I suspect there is an element of pancreatic insufficiency and I suggest we started digestive enzyme. With this will start Creon 2 tabs twice a day. Return office visit in 6 weeks LABS: Medications: New [id number] 36,000-114,000- 180,000 unit (Creon) administer with meals and/or snacks 2 caps PO BID 120 caps 6RF K58.9 - Irritable bowel syndrome without diarrhea, K59.04 - Chronic idiopathic constipation Discontinued sennosides (Senna Laxative) Discontinued Reason: Doctor's Order 17.2 mg (2 x 8.6 mg) PO BEDTIME 60 tabs 3RF Coding Level of Care Code Est Pt Level 3 (08619) Diagnoses Chronic idiopathic constipation K59.04 IBS (irritable bowel syndrome) K58.9
[2023-07-12 11:03] VITALS: BP 104/54; PULSE 69; BMI 38.7
== END 2023-07-12 11:19 | disposition home or self-care (01) ==
PROVIDERS: PCP Nurse Practitioner Family; Visit Provider Nurse Practitioner
DX: K59.04 Chronic idiopathic constipation (principal); K58.9 Irritable bowel syndrome, unspecified
CPT/HCPCS: 99213

== ENCOUNTER 2023-08-23 15:49 | Outpatient (AMB) | payer OTHER, SELFPAY ==
[2023-08-23 15:56] VITALS: BP 116/61; PULSE 79; BMI 39.8
--- NOTE | 2023-08-23 15:56 | MHC.OFFVIS ---
Intake Vital Signs 08/23/23 15:56 Height 5 ft 3 in Weight 224 lb 13.944 oz BMI 39.8 BP 116/61 Blood Pressure Location Rt brachial Position Sitting Pulse 79 Intake Visit Reasons: 6 week follow up CIC, IBS bloating Intake Note: Patient presents in follow up of CIC. CC: Patient states she has been taking the enzymes and they make all the difference and that she feels like her old self again . She is having regular BMs now, she states she sometimes gets abdominal bloating but she is doing a lot better overall. 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 The cramping will resolve for a couple of hours, then if she eats the bloating and discomfort will return. She is moving pure liquid stools. She brought her stool samples today as well. SO, I suggest that she go down to 1 senna and I and will see if we can get more formed stools. I am concerned that she still having bloating after eating and I suspect there is an element of pancreatic insufficiency and I suggest we started digestive enzyme. With this will start Creon 2 tabs twice a day. Return office visit in 6 weeks LABS: Laboratory Tests 07/12/23 09:15 Stool Pancreat Daniela stase >500 Medications: New ebbidb-ueavwnew-je ylase 36,000-114,0 00- 180,000 unit ( Creon) administ er with meals and/ or snacks 2 caps PO BID 120 caps 6RF K58.9 - Irritable bowel syndrome wit hout diarrhea, K59 .04 - Chronic idio pathic constipatio n Discontinued sennosides (Senna Laxative) Disco ntinued Reason: D buddyor's Order 17.2 mg (2 x 8.6 m g) PO BEDTIME 60 t abs 3RF TODAY'S VISIT Despite normal pancreatic elastase, she has had wonderful symptom resolution since we started the Creon! She is now having regular bowel movements that are soft and twice a day and she has not even having to use the senna. She is extremely happy with this. She will still have occasional bloating but she calls this ?normal bloating? when she eats something that can explain it like broccoli etc.. She definitely understands that she can live with. This is just another example of how exocrine pancreatic insufficiency is really a clinical diagnosis as the testing does not show complete picture. The patient was educated about this and why the diagnosis is put forward even in the face of a normal pancreatic elastase. Return office visit in 6 months or sooner if symptoms reappear [facility] Medical History (Updated 08/23/23 @ 16:38 by JOVANNI Orona) Chronic idiopathic constipation Vitamin D deficiency Obesity (BMI 30-39.9) Intermittent palpitations IBS (irritable bowel syndrome) Generalized anxiety disorder Surgical History History of incision and drainage History of hemorrhoidectomy Family History Father CAD (coronary artery disease) HTN (hypertension) Bipolar disorder Substance use disorder Mental health disorder Mother Thyroid disorder Bipolar disorder Substance use disorder Mental health disorder Maternal Aunt Bipolar disorder Substance use disorder Mental health disorder Maternal Uncle Myocardial infarction Bipolar disorder Substance use disorder Mental health disorder Paternal Aunt Bipolar disorder Substance use disorder Mental health disorder Paternal Uncle Bipolar disorder Substance use disorder Mental health disorder Social History Housing: House Alcohol intake: never Patient Tobacco Use Status: Never used Tobacco e-Cigarette/Vaping Use: Never Used service: No Current occupational status: employed and unemployed Cognitive needs: No Hearing needs: No Vision needs: No Review of Systems Const Denies fatigue, Denies fever(s), Denies night sweats, Denies poor appetite and Denies weight loss Eyes Details: glasses Reports requires corrective lenses ENT Reports Normal hearing present, Denies dental pain, Denies dysphagia, Denies hearing loss, Denies mouth pain, Denies odynophagia, Denies throat swelling, Denies tongue swelling and Reports other (Dentition adequate) Card Reports no additional complaints Resp Reports no additional complaints GI Denies abdominal pain, Denies melena, Reports bloating, Denies hematochezia, Denies constipation, Denies GI cramping, Denies dysphagia, Denies excessive flatus, Denies early satiety, Denies heartburn, Denies diarrhea, Denies nausea, Denies odynophagia, Denies vomiting and Denies hematemesis Skin/Breast Denies pruritus, Denies lesions, Denies rash and Denies jaundice Neuro Reports Normal hearing present and Denies Abnormal speech present Endo Denies fatigue Aller/Immun Denies throat swelling and Denies tongue swelling Physical Exam Vital Signs: Last Vital Signs Pulse 79 08/23/23 15:56 BP 116/61 08/23/23 15:56 BMI result Body Mass Index 39.8 Const General: cooperative, no acute distress, well developed and well groomed Nutritional Appearance: well nourished and obese morbidly obese Orientation/consciousness: oriented to person, oriented to place and oriented to time Limitations: No language barrier HEENT Head: Yes normocephalic and Yes atraumatic Eyes General: appearance normal, both eyes and all related structures Pupils: Equal, round and reactive pupils present Neck Neck: Yes normal visual inspection and Yes no lymphadenopathy Thyroid: Thyroid normal Resp Effort & Inspection: normal respiratory effort and able to speak in complete sentences Auscultation: clear to auscultation bilaterally Cardio Rate: regular rate Rhythm: regular rhythm Heart sounds: Normal, physiologic split S2 sound present Peripheral pulses: radial pulses present and posterior tibial pulses present GI Inspection: No distended, Yes Abdominal panniculus present and Yes obesity Palpation (GI): Soft to palpation, nontender, no guarding, not rigid and No hepatosplenomegaly present Percussion: Yes normal to percussion Auscultation: normal bowel sounds Rectal Exam - Female: deferred Skin General skin exam: no rashes or lesions noted, turgor normal, skin not dry, no jaundice, No spider nevi and no striae Rashes: no rashes Nails: normal Neuro General: oriented to person, oriented to place and oriented to time Cranial nerves: Yes Equal, round and reactive pupils present and Yes Normal hearing present Speech: No Abnormal speech present Extrem General: Yes normal to inspection, No clubbing, No cyanosis and No edema Psych Appearance: grossly normal and well kempt Mental Status: mental status grossly normal Speech and movement: Normal speech and movement present Affect: normal affect Attitude: cooperative Thought process: Normal thought process present and not confabulating Thought content: Normal thought content present Insight: Fair insight present (Psych) Judgement: Fair judgement present (Psych) Assessment & Plan Assessment & Plan (1) Exocrine pancreatic insufficiency: Code(s): K86.81 - Exocrine pancreatic insufficiency (2) IBS (irritable bowel syndrome): Code(s): K58.9 - Irritable bowel syndrome without diarrhea Plan Despite normal pancreatic elastase, she has had wonderful symptom resolution since we started the Creon! She is now having regular bowel movements that are soft and twice a day and she has not even having to use the senna. She is extremely happy with this. She will still have occasional bloating but she calls this ?normal bloating? when she eats something that can explain it like broccoli etc.. She definitely understands that she can live with. This is just another example of how exocrine pancreatic insufficiency is really a clinical diagnosis as the testing does not show complete picture. The patient was educated about this and why the diagnosis is put forward even in the face of a normal pancreatic elastase. Return office visit in 6 months or sooner if symptoms reappear Coding Level of Care Code Est Pt Level 3 (49683) Diagnoses Exocrine pancreatic insufficiency K86.81 IBS (irritable bowel syndrome) K58.9
== END 2023-08-23 16:36 | disposition home or self-care (01) ==
PROVIDERS: PCP Nurse Practitioner Family; Referring Provider Nurse Practitioner Family; Visit Provider Nurse Practitioner
DX: K86.81 Exocrine pancreatic insufficiency (principal); K58.9 Irritable bowel syndrome, unspecified
CPT/HCPCS: 99213

== ENCOUNTER → 2023-08-23 15:49 | Outpatient (BNVA) | payer OTHER, SELFPAY | PROVIDERS: PCP Nurse Practitioner Family; Visit Provider Nurse Practitioner ==

== ENCOUNTER 2023-08-27 14:22 | Outpatient (AMB) | payer OTHER, SELFPAY ==
[2023-08-27 14:44] VITALS: BMI 39.4
--- NOTE | 2023-08-27 14:44 | A.OFFVIS_ITS ---
Intake VS Expanded 08/27/23 14:44 Height 5 ft 3 in Weight 222 lb 3.615 oz BMI 39.4 Intake Visit Reasons: Obesity/CONFIRMED Allergies No Known Allergies [No Known Allergies*] Allergy (Verified 08/23/23 15:59) HPI Nutrition Presentation Details Pt presents for MNT Obesity Pt reports having had difficulties with meals and diet modifications relate to increased GI discomfort. She reports she has been prescribed pancreatic enzymes and has had great improvement in GI side effects. Pt reports now starting to feel more comfortable in trying foods. ymca renewal: has not started yet Most Recent Diabetes Results: Cholesterol 161 mg/dL (<200) 06/12/23 HDL Cholesterol 46 mg/dL (>40) 06/12/23 Triglycerides 66 mg/dL (<150) 06/12/23 Creatinine 0.74 mg/dL (0.5-1.4) 06/12/23 Blood Urea Nitrogen 11 mg/dL (9-16) 06/12/23 Sodium 142 mmol/L (135-145) 06/12/23 Potassium 4.4 mmol/L (3.3-5.1) 06/12/23 Chloride 108 mmol/L (96-108) 06/12/23 Carbon Dioxide 27 mmol/L (22-29) 06/12/23 Calcium 9.7 mg/dL (8.4-10.2) 06/12/23 AST 13 U/L (5-31) 06/12/23 ALT 11 U/L (0-31) 06/12/23 Total Protein 6.9 g/dL (6.5-8.0) 06/12/23 Albumin 4.2 g/dL (3.5-5.0) 06/12/23 [facility] Medical History (Updated 08/23/23 @ 16:38 by JOVANNI [place]) Chronic idiopathic constipation Vitamin D deficiency Obesity (BMI 30-39.9) Intermittent palpitations IBS (irritable bowel syndrome) Generalized anxiety disorder Surgical History History of incision and drainage History of hemorrhoidectomy Family History Father CAD (coronary artery disease) HTN (hypertension) Bipolar disorder Substance use disorder Mental health disorder Mother Thyroid disorder Bipolar disorder Substance use disorder Mental health disorder Maternal Aunt Bipolar disorder Substance use disorder Mental health disorder Maternal Uncle Myocardial infarction Bipolar disorder Substance use disorder Mental health disorder Paternal Aunt Bipolar disorder Substance use disorder Mental health disorder Paternal Uncle Bipolar disorder Substance use disorder Mental health disorder Social History Housing: House Alcohol intake: never Patient Tobacco Use Status: Never used Tobacco e-Cigarette/Vaping Use: Never Used service: No Current occupational status: employed and unemployed Cognitive needs: No Hearing needs: No Vision needs: No Assessment & Plan Assessment & Plan (1) Obesity (BMI 30-39.9): Code(s): E66.9 - Obesity, unspecified Plan: wt: 101 kg Est kcal needs as per MSJ: 2000 (40% carb, 30% protein/fat) Est fluid needs as per 25-30 ml/d: 2500- 3000 Est prot per day as per 1 g/kg bw: 101 Recommend fiber intake : 8-10 g per day and gradually increase to 25-28 g per day for women and 35-38 g for men or as tolerated Recommend sodium intake per day : less than 2000 mg Educated patient on: ( R = reviewed V = verbalizes understanding N/R = needs review N/A = not applicable * Food sources of carbohydrate, adequate serving sizes and its role in various health conditions: R * Differences between complex carbohydrates a simple carbohydrates, role of fiber in diet: R * Differences between types of fats and role in diet (mono on saturated fat fatty acids, saturated fatty acids, trans fats): R * Food sources of sodium in salt and healthy modifications for heart health in kidney health: R * Vitamins and minerals: R * Healthy plate method concept: R = * Physical activity: Benefits a precaution: R Patient Instructions: Increase on water intake aim at having 6-8 cups a day practice mindful eating , reducing on sugars intake Coding Level of Care Code Nutr Indiv Subseq (90454) Diagnoses Obesity (BMI 30-39.9) E66.9 Time Spent (min) 18
== END 2023-08-27 15:05 | disposition home or self-care (01) ==
PROVIDERS: PCP Nurse Practitioner Family; Visit Provider Dietitian, Registered
DX: E66.9 Obesity, unspecified (principal)

== ENCOUNTER → 2023-08-27 14:22 | Outpatient (BNVA) | payer OTHER, SELFPAY | PROVIDERS: PCP Nurse Practitioner Family; Visit Provider Dietitian, Registered | DX: E66.9 Obesity, unspecified (principal); Z68.39 Body mass index [BMI] 39.0-39.9, adult; Z71.3 Dietary counseling and surveillance | CPT/HCPCS: 97803 ==

== ENCOUNTER 2024-01-16 10:50 | Outpatient (AMB) | payer OTHER, SELFPAY ==
--- NOTE | 2024-01-16 10:53 | MHC.PC.OV ---
Vital Signs 01/16/24 11:01 Height 5 ft 3 in Weight 217 lb BMI 38.4 BP 130/74 Blood Pressure Location Rt brachial Position Sitting Respiration 14 Pulse 108 H Pulse Source Pulse Oximeter Temp 97.8 F Temp Source Temporal Artery Scan Pulse Oximetry (%) 98 Oxygen Delivery Method Room Air Intake Visit Reasons: Transfer of Care Dr. Schofield ( [facility]) Intake Note: Patient states that symptoms started on with a headache. As the week persisted her eyes started to get 'glued shut' by mucus crusting around eyes. Patient states that she has congestion and a sore throat with bumps in back. Patient states that phlegm is a green color. Patient would also like to get back on Vitamin D3. Personnel Officer Required: No Accompanied by: Self / Same As Patient Allergies No Known Allergies [No Known Allergies*] Allergy (Verified 01/16/24 11:15) Medication List - Last Reconciled 01/16/24 by Dania Castrejon, EXPLORATION DRILLER- bupropion HCl XL 150 mg PO DAILY cholecalciferol (vitamin D3) 25 mcg PO DAILY etonogestrel (Nexplanon) subdermal efnrgd-sbktnelr-kwlsyrd 36,000-114,000- 180,000 unit (Creon) 2 caps PO BID Tobacco use date assessed: 01/16/24 Dental Screening Dental Screen Date: 01/16/24 Did you have a dental visit in the last 12 months?: Yes Did you have a dental problem in the last 6 months where you did not have access to dental care?: No Was dental information given to patient?: Patient has dentist HPI HPI Comments History of Present Illness Details 28-year-old female with exocrine pancreatic insufficiency, vitamin-D deficiency, obesity, IBS, generalized anxiety disorder, chronic constipation, status post incision and drainage foot abscess on the right heel positive MRSA in 2009, hemorrhoidectomy in 2020 Health maintenance pap 2020 Tdap 2016 [facility] 06/25/2023 normal CBC, normal CMP, normal lipid profile, vitamin-D low, normal TSH Here today w/ URI sx. headache, feeling tired Sunday woke w/ increased nasal congestion and mucous then purulent eye drainage pressure & pain in ears, feels like under water hard to swallow thinks may have bumps in the back when blinks eyes feel gritty Used benadryl wondering if this was allergies w/o relief also using cough drops w/o relief Will be est care and would like labs ordered. [facility] Medical History Chronic idiopathic constipation Vitamin D deficiency Obesity (BMI 30-39.9) Intermittent palpitations IBS (irritable bowel syndrome) Generalized anxiety disorder Surgical History H/O removal of cyst History of incision and drainage History of hemorrhoidectomy Family History Father CAD (coronary artery disease) HTN (hypertension) Bipolar disorder Substance use disorder Mental health disorder Mother Thyroid disorder Bipolar disorder Substance use disorder Mental health disorder Maternal Aunt Bipolar disorder Substance use disorder Mental health disorder Maternal Uncle Myocardial infarction Bipolar disorder Substance use disorder Mental health disorder Paternal Aunt Bipolar disorder Substance use disorder Mental health disorder Paternal Uncle Bipolar disorder Substance use disorder Mental health disorder Social History Housing: House Alcohol intake: never Patient Tobacco Use Status: Never used Tobacco e-Cigarette/Vaping Use: Never Used service: No Current occupational status: unemployed Cognitive needs: No Hearing needs: No Vision needs: Yes Questionnaire PHQ-9 Over the last 2 weeks, how often have you been bothered by any of the following problems? 1. Little interest or pleasure in doing things: more than half the days 2. Feeling down, depressed, or hopeless: more than half the days 3. Trouble falling or staying asleep, or sleeping too much: more than half the days 4. Feeling tired or having little energy: nearly every day 5. Poor appetite or overeating: more than half the days 6. Feeling bad about yourself - or that you are a failure or have let yourself or your family down: more than half the days 7. Trouble concentrating on things, such as reading the newspaper or watching television: more than half the days 8. Moving or speaking so slowly that other people could have noticed. Or the opposite - being so fidgety or restless that you have been moving around a lot more than usual: several days 9. Thoughts that you would be better off or of hurting yourself in some way: several days Total score: 17 Depression Screening Interpretation: Positive Depression Screening Follow-up: Existing condition Depression Screening Done: Yes 13905 - PHQ-9 Billing: Yes Source: Developed by Drs. Shashank Modi, Macrina Goldstein, Rupert Carbajal and colleagues, with an educational khoa from [employer]. Thrive Questionnaire Date Thrive assessed: 01/16/24 I am a: Patient What is your living situation today?: I have a steady place to live Within the past 12 months, did the food you bought not last and you didn't have the money to get more?: Never true Within the past 12 months, did you worry whether your food would run out before you got money to buy more?: Never true Do you have trouble paying for medicines?: No Do you have trouble getting transportation to medical appointments?: No Do you have trouble paying your heating and electricity bill?: No Do you have trouble taking care of your child, family member or friend?: No Do you have trouble with day-to-day activities such as bathing, preparing meals, shopping, managing finances, etc.?: No Are you currently unemployed and looking for a job?: Yes Are you interested in more education?: No Please select the resources that you would like help with: Job search/training Currently or been in a relationship where the following occur: no concerns reported THRIVE Score: 0 AUDIT C Alcohol Use Questionnaire (AUDIT-C) 1. How often do you have a drink containing alcohol?: Never 3. How often do you have six or more drinks on one occasion?: Never Total Score: 0 Score Reviewed/Action Taken: Yes VELIA-7 AMB Questionnaire VELIA-7 Date VELIA - 7 assessed: 01/16/24 Feeling nervous, anxious, or on edge: 3 = Nearly every day Not being able to stop or control worryin = Nearly every day Worrying too much about different things: 3 = Nearly every day Trouble relaxin = Nearly every day Being so restless that it is hard to sit still: 2 = More than half the days Becoming easily annoyed or irritable: 2 = More than half the days Feeling afraid as if something awful might happen: 3 = Nearly every day Total VELIA-7 score (0-4 normal; 5-9 mild; 10-14 moderate; 15-21 severe): 19 Source: Developed by Drs. Shashank Modi, Mcarina Goldstein, Rupert Carbajal and colleagues, with an educational khoa from [employer]. VELIA-7 Assessment Billing VELIA-7 Assessment Tool: VELIA-7 Assessment 82971 Review of Systems Const All systems reviewed & are unremarkable except as noted in HPI and below Physical exam (Primary Care) Vital Signs: Last Vital Signs Temp 97.8 F 01/16/24 11:01 Pulse 108 H 01/16/24 11:01 Resp 14 01/16/24 11:01 BP 130/74 01/16/24 11:01 Pulse Ox 98 01/16/24 11:01 Oxygen Delivery Method Room Air 01/16/24 11:01 BMI result Body Mass Index 38.4 BMI Assessment/Plan discussion: High BMI High, discussed plan: lifestyle Tobacco/Smoking Status: Tobacco use Status Tobacco use date assessed 01/16/24 01/16/24 11:12 Patient Tobacco Use Status Never used Tobacco 01/16/24 10:53 e-Cigarette/Vaping Use Never Used 01/16/24 10:53 PHQ-9: PHQ-9 Score PHQ-9: Total score 17 01/16/24 11:12 Depression Screening Interpretation: Positive Depression Screening Follow-up: Existing condition Thrive Assessment: Date of Thrive Assessment Date Thrive assessed 01/16/24 01/16/24 11:12 Currently or been in a relationship where the following occur: no concerns reported Const Other: Awake alert NAD Sclera and conjunctiva clear bilat Nares patent, turbinates within normal limits, no sinus tenderness with palpation bilat TM intact bilat, + injection and mild bulging on R MMM, pharynx exudative pharyngitis, managing secretions + strep RRR LS CTAB Results AMB Rapid Strep AMB Rapid Strep Positive Last Edit by ANAND Mejia-NIMA on 01/16/24 11:28 Assessment and Plan Assessment & Plan (1) Strep pharyngitis: Code(s): J02.0 - Streptococcal pharyngitis (2) Vitamin D deficiency: Code(s): E55.9 - Vitamin D deficiency, unspecified (3) Obesity (BMI 30-39.9): Code(s): E66.9 - Obesity, unspecified (4) Encounter for screening involving social determinants of health (SDoH): Comment: + thrive screen wants help finding employment NN referral placed Code(s): Z13.9 - Encounter for screening, unspecified Plan This note is constructed using voice recognition software. While every effort has been made to ensure accuracy in ammonia box tender, still errors may have been included Sometimes, these errors may affect the content or meaning of the given sentence . Total time spent caring for the patient today was 30 minutes. This includes time spent before the visit reviewing the chart, time spent during the visit, and time spent after the visit on documentation Orders: Orders Vitamin D 1,25 dihydroxy Today E55.9 - Vitamin D deficiency, unspecified Comprehensive Met. Panel Today E55.9 - Vitamin D deficiency, unspecified AMB Rapid Strep Screen Today Z13.9 - Encounter for screening, unspecified LDL Cholesterol Direct Today E55.9 - Vitamin D deficiency, unspecified Hemoglobin A1c Today E55.9 - Vitamin D deficiency, unspecified Referrals Nurse Navigator Referral Z13.9 - Encounter for screening, unspecified Medications: New amoxicillin-pot clavulanate 875-125 mg 1 tab PO BID 7 days 14 tabs 0RF fluticasone propionate 50 mcg/actuation administer into each nostril 1 spray intranasal BID 16 grams 0RF Patient Instructions: Return to office in 2 weeks to review labs and establish care. Sooner as needed. Good hand hygiene and respiratory etiquette can reduce the spread of all types of group A strep infection. Hand hygiene is especially important after coughing and sneezing and before preparing foods or eating. Good respiratory etiquette involves covering your cough or sneeze. Do not share food or drinks. Treating an infected person with an antibiotic for 12 hours or longer limits their ability to transmit the bacteria. Thus, people with group A strep pharyngitis should stay home from work, school, or daycare until: They are afebrile AND At least 12?24 hours after starting appropriate antibiotic therapy I also recommend changing toothbrush and washing bed linen in hot water 24 hours after starting antibiotics Coding Level of Care Code Est Pt Level 4 (17183) Diagnoses Strep pharyngitis J02.0 Vitamin D deficiency E55.9 Obesity (BMI 30-39.9) E66.9 Encounter for screening involving social determinants of health (SDoH) Z13.9 Additional Codes VELIA-7 Assessment Billing - VELIA-7 Assessment Tool: VELIA-7 Assessment 41807 ([id number])
[2024-01-16 11:01] VITALS: BP 130/74; PULSE 108; RESP 14; TEMP 36.6; O2SAT 98; BMI 38.4
== END 2024-01-16 11:36 | disposition home or self-care (01) ==
PROVIDERS: PCP Nurse Practitioner Family; Visit Provider Nurse Practitioner Family
DX: J02.0 Streptococcal pharyngitis (principal); E55.9 Vitamin D deficiency, unspecified; E66.9 Obesity, unspecified; Z68.38 Body mass index [BMI] 38.0-38.9, adult
CPT/HCPCS: 87880; 99214

== ENCOUNTER 2024-01-24 12:57 | Outpatient (REF) | payer OTHER, SELFPAY ==
[2024-01-24 15:24] LABS: Estimated Average Glucose 100 mg/dL; Hemoglobin A1c % 5.1 % (<6.0)
[2024-01-24 15:32] LABS: Alanine Aminotransferase 12 U/L (0-31); Albumin Level 4.3 g/dL (3.5-5.0); Alkaline Phosphatase 55 U/L (39-117); Anion Gap 12 (12-20); Aspartate Amino Transferase 12 U/L (5-31); Bilirubin Total 0.3 mg/dL (0.0-1.0); Blood Urea Nitrogen 9 mg/dL (9-16); Calcium 9.8 mg/dL (8.4-10.2); Carbon Dioxide 28 mmol/L (22-29); Chloride 106 mmol/L (96-108); Estimated Glomerular Filt Rate > 60; Glucose Random 93 mg/dL (60-115); Potassium 4.2 mmol/L (3.3-5.1); Sodium 142 mmol/L (135-145); Total Protein 7.1 g/dL (6.5-8.0)
[2024-01-25 15:13] LABS: LDL Cholesterol Direct 106 mg/dL (<100)
[2024-01-29 02:54] LABS: VITAMIN D (1,25 OH) D3 29 pg/mL; Vit D (1,25-Dihydroxy) Total 29 pg/mL (18-72); Vitamin D (1,25 OH) D2 <8 pg/mL
== END 2024-01-24 12:58 | disposition home or self-care (01) ==
LOC: HO.WFDLDS 12:57
PROVIDERS: Visit Provider Nurse Practitioner Family
DX: E55.9 Vitamin D deficiency, unspecified (principal); Z13.1 Encounter for screening for diabetes mellitus; Z13.220 Encounter for screening for lipoid disorders
CPT/HCPCS: 36415; 80053; 82652; 83036; 83721

== ENCOUNTER 2024-02-04 08:46 | Outpatient (AMB) | payer OTHER, SELFPAY ==
--- NOTE | 2024-02-04 08:59 | AM.OFFWIN_ITS ---
Intake Vital Signs 02/04/24 09:00 Height 5 ft 3 in Weight 222 lb BMI 39.3 BP 112/58 L Blood Pressure Location Lt brachial Position Sitting Respiration 12 Pulse 89 Pulse Source Pulse Oximeter Pulse Oximetry (%) 96 Oxygen Delivery Method Room Air Intake Visit Reasons: Strep throat Intake Note: Patient reports she was seen for strep throat and given antibiotics. Patient reports she has been off of the antibiotics for 1 week and is experiencing a sore throat and R ear pain. Patient states the pain is worse at night. Patient Tobacco Use Status: Never used Tobacco Allergies No Known Allergies [No Known Allergies*] Allergy (Verified 02/04/24 09:08) Medication List - Last Reconciled 02/04/24 by Dania Castrejon, INTEGRATED LOGISTICS SUPPORT MANAGER- bupropion HCl XL 150 mg PO DAILY cholecalciferol (vitamin D3) 25 mcg PO DAILY etonogestrel (Nexplanon) subdermal fluticasone propionate 50 mcg/actuation 1 spray intranasal BID nypsim-yccbzvtn-[id number] 36,000-114,000- 180,000 unit (Creon) 2 caps PO BID Do you need a note to return to daycare/school/sports/work: No HPI HPI Comments History of Present Illness Details Here today for c/o sore throat and ear pain Tx for strep with Augmentin 01/16/24 , states she took meds as directed & completed therapy. Reports all of her sx improved Then 1-2 days after completion of AB developed sore throat and ear pain; sx worse at HS EXAM: Awake alert NAD TM intact, clear on L, mild fluid on R Nares patent, turbinates WNL Exudative pharyngitis, uvula midline, + halitosis + AC adenopathy bilat Plan: Despite negative rapid strep today, given the exam, I will tx her for Cefadroxil for 10 days. RTO aroud February 17 for a recheck, sooner if sx persist or worsen. [facility] Medical History Chronic idiopathic constipation Vitamin D deficiency Obesity (BMI 30-39.9) Intermittent palpitations IBS (irritable bowel syndrome) Generalized anxiety disorder Surgical History H/O removal of cyst History of incision and drainage History of hemorrhoidectomy Family History Father CAD (coronary artery disease) HTN (hypertension) Bipolar disorder Substance use disorder Mental health disorder Mother Thyroid disorder Bipolar disorder Substance use disorder Mental health disorder Maternal Aunt Bipolar disorder Substance use disorder Mental health disorder Maternal Uncle Myocardial infarction Bipolar disorder Substance use disorder Mental health disorder Paternal Aunt Bipolar disorder Substance use disorder Mental health disorder Paternal Uncle Bipolar disorder Substance use disorder Mental health disorder Social History Housing: House Alcohol intake: never Patient Tobacco Use Status: Never used Tobacco e-Cigarette/Vaping Use: Never Used service: No Current occupational status: unemployed Cognitive needs: No Hearing needs: No Vision needs: Yes Review of Systems Const All systems reviewed & are unremarkable except as noted in HPI and below Physical Exam Vital Signs: Last Vital Signs Pulse 89 02/04/24 09:00 Resp 12 02/04/24 09:00 BP 112/58 L 02/04/24 09:00 Pulse Ox 96 02/04/24 09:00 Oxygen Delivery Method Room Air 02/04/24 09:00 BMI result Body Mass Index 39.3 Results AMB Rapid Strep AMB Rapid Strep Negative Last Edit by Karen Hwang CMA on 4 09:18 Assessment & Plan Assessment & Plan (1) Strep pharyngitis: Code(s): J02.0 - Streptococcal pharyngitis Plan: . Plan This note is constructed using voice recognition software. While every effort has been made to ensure accuracy in ecommerce project manager, still errors may have been included Sometimes, these errors may affect the content or meaning of the given sentence . Total time spent caring for the patient today was 30 minutes. This includes time spent before the visit reviewing the chart, time spent during the visit, and time spent after the visit on documentation Orders: Orders AMB Rapid Strep Screen Today Z13.9 - Encounter for screening, unspecified Medications: New cefadroxil 500 mg PO BID 20 caps 0RF Patient Instructions: Good hand hygiene and respiratory etiquette can reduce the spread of all types of group A strep infection. Hand hygiene is especially important after coughing and sneezing and before preparing foods or eating. Good respiratory etiquette involves covering your cough or sneeze. Do not share food or drinks. Treating an infected person with an antibiotic for 12 hours or longer limits their ability to transmit the bacteria. Thus, people with group A strep pharyngitis should stay home from work, school, or daycare until: They are afebrile AND At least 12?24 hours after starting appropriate antibiotic therapy I also recommend changing toothbrush and washing bed linen in hot water 24 hours after starting antibiotics Coding Level of Care Code Est Pt Level 4 (56599) Diagnoses Strep pharyngitis J02.0
[2024-02-04 09:00] VITALS: BP 112/58; PULSE 89; RESP 12; O2SAT 96; BMI 39.3
== END 2024-02-04 09:23 | disposition home or self-care (01) ==
PROVIDERS: PCP Nurse Practitioner Family; Visit Provider Nurse Practitioner Family
DX: J02.0 Streptococcal pharyngitis (principal)
CPT/HCPCS: 87880; 99214

== ENCOUNTER 2024-02-13 09:31 | Outpatient (AMB) | payer OTHER, SELFPAY ==
--- NOTE | 2024-02-13 09:32 | A.OFFPC_ITS ---
Vital Signs 02/13/24 09:38 Weight 219 lb 2 oz BP 130/64 Blood Pressure Location Rt brachial Position Sitting Respiration 16 Pulse 82 Pulse Source Pulse Oximeter Temp 97.7 F Temp Source Temporal Artery Scan Pulse Oximetry (%) 95 Oxygen Delivery Method Room Air Intake Visit Reasons: Throat pain Intake Note: patient here c/o weird throat symptoms. shes on the last day of antibiotics but her jaw hurts a lot now. Transverse Abdominal Muscle Surgeon Required: No Is last menstrual period known: Yes Last menstrual period: 02/08/24 Post menopausal: No Patient : No Allergies No Known Allergies [No Known Allergies*] Allergy (Verified 02/13/24 09:56) Medication List - Last Reconciled 02/13/24 by Dania Castrejon, AFRICAN HISTORY PROFESSOR- bupropion HCl XL 150 mg PO DAILY cefadroxil 500 mg PO BID etonogestrel (Nexplanon) subdermal fovxbk-jjnlullg-soyuwpl 36,000-114,000- 180,000 unit (Creon) 2 caps PO BID Tobacco use date assessed: 01/16/24 Dental Screening Dental Screen Date: 01/16/24 HPI HPI Comments History of Present Illness Details Here today with complaints of right jaw and ear pain that started yesterday. She is currently on cefadroxil for recurrent strep pharyngitis. She reports that all of her symptoms related to strep have resolved, with exception of 2 white areas on her tonsils. She is on her last day of antibiotic therapy today. The pain is on her right jaw near her right ear, worse with chewing and opening mouth, feels like she has limited range of motion when opening her mouth due to the pain. When she is resting or not using it and has a very mild ache, when she is using it she has worse pain. admits she is a nervous bag of beans and clenches her teeth. EXAM: Awake alert NAD TM intact bilat, clear on L, trace fluid behind TM on R improved since last visit, no erythema. No external ear pain, no mastoid pain. Nares patent, turbinates WNL MMM, pharynx pink, uvula midline, no halitosis, 1 area of exudate on each tonsil - much improved since last office visit no AC adenopathy bilat Pain over R jaw w/ opening and close, + popping sensation, no dislocation appreciated. Plan: Tx w/ additional 5 days of AB for cont exudative pharyngitis to ensure resolution TMJ - tx w/ NSAIDs , offered and declined muscle relaxer, edu provided. RTO 02/17 to f/u on above, sooner as needed. [facility] Medical History Chronic idiopathic constipation Vitamin D deficiency Obesity (BMI 30-39.9) Intermittent palpitations IBS (irritable bowel syndrome) Generalized anxiety disorder Surgical History H/O removal of cyst History of incision and drainage History of hemorrhoidectomy Family History Father CAD (coronary artery disease) HTN (hypertension) Bipolar disorder Substance use disorder Mental health disorder Mother Thyroid disorder Bipolar disorder Substance use disorder Mental health disorder Maternal Aunt Bipolar disorder Substance use disorder Mental health disorder Maternal Uncle Myocardial infarction Bipolar disorder Substance use disorder Mental health disorder Paternal Aunt Bipolar disorder Substance use disorder Mental health disorder Paternal Uncle Bipolar disorder Substance use disorder Mental health disorder Social History Housing: House Alcohol intake: never Patient Tobacco Use Status: Never used Tobacco e-Cigarette/Vaping Use: Never Used Patient : No service: No Current occupational status: unemployed Cognitive needs: No Hearing needs: No Vision needs: Yes Female Reproductive History Menstrual Date of last menstrual period: 02/08/24 Questionnaire Thrive Questionnaire Date Thrive assessed: 01/16/24 VELIA-7 AMB Questionnaire VEILA-7 Date VELIA - 7 assessed: 01/16/24 Source: Developed by Drs. Shashank Modi, Macrina Goldstein, Rupert Carbajal and colleagues, with an educational khoa from [employer]. Physical exam (Primary Care) Vital Signs: Last Vital Signs Temp 97.7 F 02/13/24 09:38 Pulse 82 02/13/24 09:38 Resp 16 02/13/24 09:38 BP 130/64 02/13/24 09:38 Pulse Ox 95 02/13/24 09:38 Oxygen Delivery Method Room Air 02/13/24 09:38 Tobacco/Smoking Status: Tobacco use Status Tobacco use date assessed 01/16/24 02/13/24 09:35 Patient Tobacco Use Status Never used Tobacco 02/13/24 09:35 e-Cigarette/Vaping Use Never Used 02/13/24 09:35 Thrive Assessment: Date of Thrive Assessment Date Thrive assessed 01/16/24 02/13/24 09:35 Assessment and Plan Assessment & Plan (1) TMJ arthralgia: Code(s): M26.629 - Arthralgia of temporomandibular joint, unspecified side Qualifiers: Laterality: right Qualified Code(s): M26.621 - Arthralgia of right temporomandibular joint (2) Strep pharyngitis: Code(s): J02.0 - Streptococcal pharyngitis Medications: New ibuprofen 800 mg PO Q8H PRN 30 tabs 0RF pain Refilled cefadroxil 500 mg PO BID 10 caps 0RF Patient Instructions: Ok to use OTC Ibuprofen 800mg three times per day as needed, take with food Follow instructions below for TMJ care Could consider OTC mouth gaurd as needed Will extend AB tx for Strep - however this is not causing the R jaw/ear pain today. Instructions for Patients with Temporomandibular Disorders (TMJ) Success in treating your temporomandibular joint (TMJ) or associated muscular symptoms depend largely upon the way you treat the involved areas. Following the instructions below will help you to manage your symptoms and aid the healing process. Do?s ? Do breathe through your nose if able, not through your mouth. ? Do rest your tongue against the roof of your mouth for greatest relaxation of your jaw muscles. ? Do maintain good posture at all times (keep your head in the midline over your shoulders). ? If it is painful to open your mouth to brush your teeth, do try using a child?s toothbrush. ? Do sleep on your back with a thin pillow under your head and a small towel roll under your neck. ? Do try to limit opening your mouth to a thumb?s thickness when yawning, laughing, coughing, sneezing or singing. ? Do cut your food into small, bite-size pieces to prevent opening your mouth too wide. ? When in stressful situations, do utilize stress management techniques to prevent unproductive tensing of your jaw, face and neck muscles. Don?ts ? Do not eat any foods that require prolonged chewing (hard crusts of bread, bagels, tough meats or popcorn). ? Do not eat hard ?crunchy? foods (peanuts, corn nuts and raw vegetables) or chew on ice cubes. ? Do not chew gum, even occasionally! ? Do not bite into any foods with your front teeth. ? Do not move your jaw in such a way that it causes the joint to make a clicking, popping or grinding sound. ? Do not bite your fingernails, chew on pencils or pens, bite your cheeks or lips, etc. ? Do not protrude your lower jaw forward when applying lipstick, eating or talking. ? Do not rest your jaw on your hand. ? If you wear a dental splint, do not play with it with your tongue. ? Do not clench or grind your teeth. Keep your lips together but your teeth apart! Coding Level of Care Code Est Pt Level 3 (10522) Diagnoses Arthralgia of right temporomandibular joint M26.621 Laterality: right Strep pharyngitis J02.0
[2024-02-13 09:38] VITALS: BP 130/64; PULSE 82; RESP 16; TEMP 36.5; O2SAT 95
== END 2024-02-13 10:00 | disposition home or self-care (01) ==
PROVIDERS: PCP Nurse Practitioner Family; Visit Provider Nurse Practitioner Family
DX: M26.621 Arthralgia of right temporomandibular joint (principal); J02.0 Streptococcal pharyngitis
CPT/HCPCS: 99213

== ENCOUNTER 2024-02-18 09:52 | Outpatient (AMB) | payer OTHER, SELFPAY ==
--- NOTE | 2024-02-18 10:00 | MHC.PC.OV ---
Vital Signs 02/18/24 10:03 Height 5 ft 2.32 in Weight 219 lb 2 oz BMI 39.7 BP 98/58 L Blood Pressure Location Rt brachial Position Sitting Pulse 73 Pulse Source Pulse Oximeter Pulse Oximetry (%) 96 Oxygen Delivery Method Room Air Intake Visit Reasons: week fu est care Allergies No Known Allergies [No Known Allergies*] Allergy (Verified 02/18/24 10:11) Medication List - Last Reconciled 02/18/24 by Dania Castrejon, PUBLIC ADDRESS SYSTEM OPERATOR- bupropion HCl XL 150 mg PO DAILY cefadroxil 500 mg PO BID etonogestrel (Nexplanon) subdermal ibuprofen 800 mg PO Q8H PRN izoopl-fjtdxino-hoawkbd 36,000-114,000- 180,000 unit (Creon) 2 caps PO BID Tobacco use date assessed: 01/16/24 Dental Screening Dental Screen Date: 01/16/24 HPI HPI Comments History of Present Illness Details THIS VISIT IS NONBILLABLE IT IS A DUPLICATE PLEASE SEE OTHER ENCOUNTER ON THIS DATE OF SERVICE, [facility] Medical History Chronic idiopathic constipation Vitamin D deficiency Obesity (BMI 30-39.9) Intermittent palpitations IBS (irritable bowel syndrome) Generalized anxiety disorder Surgical History H/O removal of cyst History of incision and drainage History of hemorrhoidectomy Family History Father CAD (coronary artery disease) HTN (hypertension) Bipolar disorder Substance use disorder Mental health disorder Mother Thyroid disorder Bipolar disorder Substance use disorder Mental health disorder Maternal Aunt Bipolar disorder Substance use disorder Mental health disorder Maternal Uncle Myocardial infarction Bipolar disorder Substance use disorder Mental health disorder Paternal Aunt Bipolar disorder Substance use disorder Mental health disorder Paternal Uncle Bipolar disorder Substance use disorder Mental health disorder Social History Housing: House Alcohol intake: never Patient Tobacco Use Status: Never used Tobacco e-Cigarette/Vaping Use: Never Used service: No Current occupational status: unemployed Cognitive needs: No Hearing needs: No Vision needs: Yes Questionnaire Thrive Questionnaire Date Thrive assessed: 01/16/24 VELIA-7 AMB Questionnaire VELIA-7 Date VELIA - 7 assessed: 01/16/24 Source: Developed by Drs. Shashank Modi, Macrina Goldstein, Rupert Carbajal and colleagues, with an educational khoa from [email or web address]. Physical exam (Primary Care) Vital Signs: Last Vital Signs Pulse 73 02/18/24 10:03 BP 98/58 L 02/18/24 10:03 Pulse Ox 96 02/18/24 10:03 Oxygen Delivery Method Room Air 02/18/24 10:03 BMI result Body Mass Index 39.7 Tobacco/Smoking Status: Tobacco use Status Tobacco use date assessed 01/16/24 02/18/24 10:05 Patient Tobacco Use Status Never used Tobacco 02/18/24 10:05 e-Cigarette/Vaping Use Never Used 02/18/24 10:05 Thrive Assessment: Date of Thrive Assessment Date Thrive assessed 01/16/24 02/18/24 10:05 Assessment and Plan Assessment & Plan (1) control counseling: Code(s): Z30.09 - Encounter for other general counseling and advice on contraception (2) Strep pharyngitis: Code(s): J02.0 - Streptococcal pharyngitis Orders: Referrals [facility] Referral Z12.4 - Encounter for screening for malignant neoplasm of cervix, Z30.09 - Encounter for other general counseling and advice on contraception Ear/Nose/Throat Referral J02.0 - Streptococcal pharyngitis Medications: Discontinued cefadroxil Discontinued Reason: Patient Completed Course 500 mg PO BID 10 caps 0RF Coding Level of Care Code Left Without Being Seen Diagnoses control counseling Z30.09 Strep pharyngitis J02.0
--- NOTE | 2024-02-18 10:00 | MHC.PC.OV ---
Vital Signs 02/18/24 10:03 Height 5 ft 2.32 in Weight 219 lb 2 oz BMI 39.7 BP 98/58 L Blood Pressure Location Rt brachial Position Sitting Pulse 73 Pulse Source Pulse Oximeter Pulse Oximetry (%) 96 Oxygen Delivery Method Room Air Intake Visit Reasons: week fu est care Intake Note: Follow up. Lab results. Paper Feeder Required: No Is last menstrual period known: Yes Last menstrual period: 02/13/24 Allergies No Known Allergies [No Known Allergies*] Allergy (Verified 02/18/24 10:11) Medication List - Last Reconciled 02/18/24 by Dania Castrejon, ROPE TWISTING MACHINE OPERATOR-BC bupropion HCl XL 150 mg PO DAILY cefadroxil 500 mg PO BID etonogestrel (Nexplanon) subdermal ibuprofen 800 mg PO Q8H PRN zfqscr-kimpbeos-togesxy 36,000-114,000- 180,000 unit (Creon) 2 caps PO BID Tobacco use date assessed: 01/16/24 Dental Screening Dental Screen Date: 01/16/24 HPI HPI Comments History of Present Illness Details Here today for follow up of right TMJ and recurrent strep pharyngitis. Since last office visit she has successfully used the NSAID for her TMJ with resolution of her symptoms. She has no more pain or limited range of motion of her right side jaw. In regards to the strep, she completes her antibiotics today. Has been taking them as directed. She offers no symptoms related to strep. She also would like to review her labs that were done in January. She also needs a referral to laser cutter for her Nexplanon which is due to be removed. EXAM: Awake alert NAD TM intact bilat, clear on L, trace fluid behind TM on R improved since last visit, no erythema. No external ear pain, no mastoid pain. Nares patent, turbinates WNL MMM, pharynx pink, uvula midline, no halitosis, worsening exudate bilat tonsils no AC adenopathy bilat No Pain over R jaw w/ opening and close, no dislocation appreciated. Plan: Refer to ENT for evaluation and treatment of the exudative pharyngitis. Complete antibiotics as directed. Labs from 01/25/24 reviewed today. No need to take Vit D as levels are normal. Advised to take MVI otherwise no addl Vitamin D required. Needs routine PEDIATRICS TEACHER referral. Placed today to [facility]. Has nexplanon that needs to be removed. Return to office in about 8 weeks to follow up on recurrent pharyngitis, sooner as needed. This note is constructed using voice recognition software. While every effort has been made to ensure accuracy in band saw marker, still errors may have been included Sometimes, these errors may affect the content or meaning of the given sentence . Total time spent caring for the patient today was 30 minutes. This includes time spent before the visit reviewing the chart, time spent during the visit, and time spent after the visit on documentation PFSH Medical History Chronic idiopathic constipation Vitamin D deficiency Obesity (BMI 30-39.9) Intermittent palpitations IBS (irritable bowel syndrome) Generalized anxiety disorder Surgical History H/O removal of cyst History of incision and drainage History of hemorrhoidectomy Family History Father CAD (coronary artery disease) HTN (hypertension) Bipolar disorder Substance use disorder Mental health disorder Mother Thyroid disorder Bipolar disorder Substance use disorder Mental health disorder Maternal Aunt Bipolar disorder Substance use disorder Mental health disorder Maternal Uncle Myocardial infarction Bipolar disorder Substance use disorder Mental health disorder Paternal Aunt Bipolar disorder Substance use disorder Mental health disorder Paternal Uncle Bipolar disorder Substance use disorder Mental health disorder Social History Housing: House Alcohol intake: never Patient Tobacco Use Status: Never used Tobacco e-Cigarette/Vaping Use: Never Used service: No Current occupational status: unemployed Cognitive needs: No Hearing needs: No Vision needs: Yes Female Reproductive History Menstrual Date of last menstrual period: 02/13/24 Questionnaire Thrive Questionnaire Date Thrive assessed: 01/16/24 VELIA-7 AMB Questionnaire VELIA-7 Date VELIA - 7 assessed: 01/16/24 Source: Developed by Drs. Shashank Modi, Macrina Goldstein, Rupert Carbajal and colleagues, with an educational khoa from [employer]. Physical exam (Primary Care) Vital Signs: Last Vital Signs Pulse 73 02/18/24 10:03 BP 98/58 L 02/18/24 10:03 Pulse Ox 96 02/18/24 10:03 Oxygen Delivery Method Room Air 02/18/24 10:03 BMI result Body Mass Index 39.7 Tobacco/Smoking Status: Tobacco use Status Tobacco use date assessed 01/16/24 02/18/24 10:05 Patient Tobacco Use Status Never used Tobacco 02/18/24 10:05 e-Cigarette/Vaping Use Never Used 02/18/24 10:05 Thrive Assessment: Date of Thrive Assessment Date Thrive assessed 01/16/24 02/18/24 10:05 Assessment and Plan Assessment & Plan (1) Strep pharyngitis: Code(s): J02.0 - Streptococcal pharyngitis (2) control counseling: Code(s): Z30.09 - Encounter for other general counseling and advice on contraception (3) TMJ arthralgia: Code(s): M26.629 - Arthralgia of temporomandibular joint, unspecified side Qualifiers: Laterality: right Qualified Code(s): M26.621 - Arthralgia of right temporomandibular joint (4) Vitamin D deficiency: Code(s): E55.9 - Vitamin D deficiency, unspecified Orders: Referrals EXPLOSIVES OPERATOR Referral Z12.4 - Encounter for screening for malignant neoplasm of cervix, Z30.09 - Encounter for other general counseling and advice on contraception Ear/Nose/Throat Referral J02.0 - Streptococcal pharyngitis Medications: Discontinued cefadroxil Discontinued Reason: Patient Completed Course 500 mg PO BID 10 caps 0RF Patient Instructions: ENT REFERRAL PEDIATRICS TEACHER REFERRAL TAKE MVI NO NEED FOR ADDL VITAMIN D RTO 8 WEEKS FU RECURRENT STREP, SOONER NEEDED Coding Level of Care Code Est Pt Level 4 (76658) Diagnoses Strep pharyngitis J02.0 control counseling Z30.09 Arthralgia of right temporomandibular joint M26.621 Laterality: right Vitamin D deficiency E55.9
[2024-02-18 10:03] VITALS: BP 98/58; PULSE 73; O2SAT 96; BMI 39.7
== END 2024-02-18 10:24 | disposition home or self-care (01) ==
PROVIDERS: PCP Nurse Practitioner Family; Visit Provider Nurse Practitioner Family
DX: J02.0 Streptococcal pharyngitis (principal); Z30.09 Encounter for other general counseling and advice on contraception; M26.621 Arthralgia of right temporomandibular joint; E55.9 Vitamin D deficiency, unspecified
CPT/HCPCS: 99214

== ENCOUNTER 2024-03-26 13:19 | Outpatient (AMB) | payer OTHER, SELFPAY ==
--- NOTE | 2024-03-26 13:37 | A.OFFVIS_ITS ---
Vital Signs 03/26/24 13:38 Height 5 ft 3 in Weight 220 lb BMI 39.0 BP 118/68 Intake Visit Reasons: New patient Annual Patent Prosecution Attorney Required: No Information Interpreted: clinical only Law Researcher: Law Researcher Present Allergies No Known Allergies [No Known Allergies*] Allergy (Verified 03/26/24 13:47) Medication List - Last Reconciled 03/26/24 by Susanne Elias CNM bupropion HCl XL 150 mg PO DAILY etonogestrel (Nexplanon) subdermal ibuprofen 800 mg PO Q8H PRN [id number] 36,000-114,000- 180,000 unit (Creon) 2 caps PO BID Is last menstrual period known: Yes Last menstrual period: 03/19/24 Do you need a note to return to daycare/school/sports/work: No HPI HPI New patient Annual: Details: Patient is here is a new patient to discuss control as well as have her annual exam she feels she is probably due for her Pap smear she is sexually active and is open and interested getting testing for STIs she is very clear for herself that she does not want to any children and she has been when she discontinued the Nexplanon on the advice of providers in order to try to get off of that method and try OCP use as an alternative method but she got on the pills she thinks she probably was not taken them it exactly the same time every day though she did take daily. In any case [facility] and does not want to go through that again she had the 2nd Nexplanon placed after the . She says her periods were very heavy and crampy especially very painful before she had the hormonal methods of control she does have mental health issues in for that is on different medications and dealing with can go balances and says she has been through a few things recently so has done little off track in terms of self-care and diet and exercise but is giving herself sanchez to get back into a good self-care moode. She is interested talking about control and she also has considered possible permanent sterilization because she is very clear she does not want have children.. [facility] Medical History Chronic idiopathic constipation Vitamin D deficiency Obesity (BMI 30-39.9) Intermittent palpitations IBS (irritable bowel syndrome) Generalized anxiety disorder Surgical History H/O removal of cyst History of incision and drainage History of hemorrhoidectomy Family History Father CAD (coronary artery disease) HTN (hypertension) Bipolar disorder Substance use disorder Mental health disorder Mother Thyroid disorder Bipolar disorder Substance use disorder Mental health disorder Maternal Aunt Bipolar disorder Substance use disorder Mental health disorder Maternal Uncle Myocardial infarction Bipolar disorder Substance use disorder Mental health disorder Paternal Aunt Bipolar disorder Substance use disorder Mental health disorder Paternal Uncle Bipolar disorder Substance use disorder Mental health disorder Social History Housing: House Alcohol intake: never Patient Tobacco Use Status: Never used Tobacco e-Cigarette/Vaping Use: Never Used service: No Current occupational status: unemployed Cognitive needs: No Hearing needs: No Vision needs: Yes Female Reproductive History Menstrual Age of Menarche: 10 Duration of menses: 3-5 days Date of last menstrual period: 03/19/24 control method: implanted Total pregnancies: 0 History of abnormal pap smear: No (previous pap neg. 2021.per patient) Physical Exam Vital Signs: Last Vital Signs BP 118/68 03/26/24 13:38 BMI result Body Mass Index 39.0 Const General: healthy appearing, comfortable, no acute distress, well developed and alert Nutritional Appearance: average body habitus Orientation/consciousness: patient oriented x3 Limitations: no limitations HEENT Head: Yes normocephalic Neck Neck: Yes normal visual inspection Chest Chest palpation & inspection: normal inspection of the chest Breast/axilla inspection: normal inspection of the breasts and normal inspection of the axillae Breast/axilla palpation: normal palpation of the breasts and normal palpation of the axillae Resp Effort & Inspection: normal respiratory effort GI Inspection: Yes normal to inspection, No Abdominal wall edema and No distended Palpation (GI): Soft to palpation and nontender Other: External vulva within limits vagina is pink and moist cervix parous moist smooth with normal healthy appearing clear and white mucus no abnormal discharge noted whatsoever cervix is long close thick mobile nontender uterus difficult feel probably midposition and nontender and mobile adnexa nontender not enlarged good tone w Kegel. General: Yes bladder normal to palpation External Female Exam: normal external appearance and normal appearance of the urethra Speculum Exam - Vagina: normal appearance of the vagina, normal palpation and normal vaginal discharge Speculum Exam - Cervix: normal appearance of the cervix, normal palpation and nontender Bimanual exam- vagina & uterus: normal bimanual exam, normal palpation, uterine size normal, bladder normal to palpation, consistency normal, normal palpation, uterine mobility normal, uterine shape normal, No Cervical tenderness present, non-tender and no cervical motion tenderness Bimanual Exam- Adnexa, other: normal adnexae, no masses, normal and No adnexal tenderness Neuro General: patient oriented x3 Assessment & Plan Assessment & Plan (1) control counseling: Code(s): Z30.09 - Encounter for other general counseling and advice on contraception Category: Medical (2) Well woman exam with routine gynecological exam: Code(s): Z01.419 - Encounter for gynecological examination (general) (routine) without abnormal findings Category: Medical (3) Cervical cancer screening: Code(s): Z12.4 - Encounter for screening for malignant neoplasm of cervix Category: Medical (4) Encounter for monitoring of etonogestrel implant: Code(s): Z30.46 - Encounter for surveillance of implantable subdermal contraceptive Category: Medical Plan -----Discussed in this visit the following: healthy balanced diet, regular and consistent exercise, getting recommended health screens, doing the best she can for her particular health concerns, kegel exercises, pap smear screening and followup recommendations, mammography screening and SBE, normal changes in cycles in her life stage--- .-I reviewed with the patient, all of the currently common used methods of control that are available. We reviewed how they work in the body, how they are taken, common side effects, uncommon side effects, precautions, and contraindications. -Discussed also factors that influence their effectiveness and use, and womens satisfaction with the method. -Discussed how each are used, and drawbacks of each method as well. -Methods covered included: condoms, Nexplanon, Mirena and Kyleena IUDs, and ParaGard IUDs, and tubal ligation. All of the above methods were covered in great detail including their side effect profiles and common experiences that women have and ways to mitigate against the negative experiences including attention to diet and exercise patient's with bleeding challenges that may occur her and efforts to time the initiation of the method to this start of the menstrual period. This discussion of all she might be interested in took place in regards to her question about whether not to replace this Nexplanon with another Nexplanon or seek a tubal ligation or consider another method of control so we discussed all methods in terms of their effectiveness their side effect profiles timing of insertion other issues to contemplate terms of return of heavy crampy periods if she chose a nonhormonal method as well as other factors to consider 1 idea might be to consider trying a Mirena a couple of months before this Nexplanon wears out which will be next year sometime and then if the patient liked it we could remove the Nexplanon if she did not like it then there would be time to arrange for a new Nexplanon to be ordered so that they could be exchanged at the same procedure. We will see the patient next year she will consider what her options are and she is working on resuming exercise and healthier eating choices and I placed orders for STD screens for her to do at her leisure and discretion. Orders: Orders Hepatitis C Antibody Today Z01.419 - Encounter for gynecological examination (general) (routine) without abnormal findings, Z12.4 - Encounter for screening for malignant neoplasm of cervix, Z30.09 - Encounter for other general counseling and advice on contraception, Z30.46 - Encounter for surveillance of implantable subdermal contraceptive HIV Ab/Ag Today Z01.419 - Encounter for gynecological examination (general) (routine) without abnormal findings, Z12.4 - Encounter for screening for malign ant neoplasm of cervix, Z30.09 - Encounter for other general counseling and advice on contraception, Z30.46 - Encounter for surveillance of implantable subdermal contraceptive CT NG by PCR Today Z01.419 - Encounter for gynecological examination (general) (routine) without abnormal findings PAP + HPV E6/E7 rfx 18/45 Today Hepatitis B Surface Antigen Today Z01.419 - Encounter for gynecological examination (general) (routine) without abnormal findings, Z12.4 - Encounter for screening for malignant neoplasm of cervix, Z30.09 - Encounter for other general counseling and advice on contraception, Z30.46 - Encounter for surveillance of implantable subdermal contraceptive Syphilis Screen Today Z01.419 - Encounter for gynecological examination (general) (routine) without abnormal findings, Z12.4 - Encounter for screening for malignant neoplasm of cervix, Z30.09 - Encounter for other general counseling and advice on contraception, Z30.46 - Encounter for surveillance of implantable subdermal contraceptive Bacterial Vaginosis Panel Today N89.8 - Other specified noninflammatory disorders of vagina Coding Level of Care Code New Pt Prev Care 18-39yr([id number] Diagnoses control counseling Z30.09 Well woman exam with routine gynecological exam Z01.419 Cervical cancer screening Z12.4 Encounter for monitoring of etonogestrel implant Z30.46
[2024-03-26 13:38] VITALS: BP 118/68; BMI 39.0
== END 2024-03-26 14:59 | disposition home or self-care (01) ==
PROVIDERS: PCP Nurse Practitioner Family; Visit Provider Advanced Practice Midwife
DX: Z30.09 Encounter for other general counseling and advice on contraception (principal); Z01.419 Encounter for gynecological examination (general) (routine) without abnormal findings; Z12.4 Encounter for screening for malignant neoplasm of cervix; Z30.46 Encounter for surveillance of implantable subdermal contraceptive
CPT/HCPCS: 99385

== ENCOUNTER 2024-03-26 13:19 | Outpatient (REF) | payer OTHER, SELFPAY ==
[2024-03-27 02:22] LABS: CT PCR NOT DETECTED (Not Detect.); NG PCR NOT DETECTED (Not Detect.)
[2024-03-27 10:51] LABS: Bacterial Vaginosis PCR POSITIVE (Negative); Candida Group PCR NOT DETECTED (Not Detect); Candida glab krusei PCR NOT DETECTED (Not Detect); Trichomonas vaginalis PCR NOT DETECTED (Not Detect)
[2024-03-28 15:48] LABS: HPV mRNA E6/E7 Not Detected (Not Detected)
== END 2024-03-26 13:20 | disposition home or self-care (01) ==
LOC: HO.LAB 13:19
PROVIDERS: PCP Nurse Practitioner Family; Visit Provider Advanced Practice Midwife
DX: Z01.419 Encounter for gynecological examination (general) (routine) without abnormal findings (principal); Z11.51 Encounter for screening for human papillomavirus (HPV); N89.8 Other specified noninflammatory disorders of vagina
CPT/HCPCS: 0352U; 87491; 87591; 87624; 88175

== ENCOUNTER 2024-04-15 12:58 | Outpatient (AMB) | payer OTHER, SELFPAY ==
--- NOTE | 2024-04-15 13:01 | A.OFFPC_ITS ---
Vital Signs 04/15/24 13:03 Height 5 ft 3 in Weight 218 lb 7.649 oz BMI 38.7 BP 104/66 Blood Pressure Location Rt brachial Position Sitting Respiration 14 Pulse 77 Pulse Source Pulse Oximeter Pulse Oximetry (%) 97 Oxygen Delivery Method Room Air Intake Visit Reasons: follow up referals Intake Note: follow up on referals Allergies No Known Allergies [No Known Allergies*] Allergy (Verified 04/15/24 13:02) Medication List - Last Reconciled 04/15/24 by Dania Castrejon, SERGEANT OF OFFICERS- bupropion HCl XL 150 mg PO QAM etonogestrel (Nexplanon) subdermal ibuprofen 800 mg PO Q8H PRN [id number] 36,000-114,000- 180,000 unit (Creon) 2 caps PO BID Tobacco use date assessed: 01/16/24 Dental Screening Dental Screen Date: 01/16/24 HPI HPI Comments History of Present Illness Details 29-year-old female with exocrine pancrea tic insufficiency, vitamin-D deficiency, obesity, IBS, generalized anxiety disorder, chronic constipation status post incision and drainage foot abscess on the right heel positive MRSA in 2008, hemorrhoidectomy in 2019 Health maintenance pap 2020, 2023 WNL Tdap 2016 [facility] [employer] Coordinator counselor and prescriber Here today for routine follow up. Since last office visit she had her 1st appointment with heavy duty mechanic. She reports that a Pap was done. Her Nexplanon was n ot removed as she has 2 years left. She does desire long-term control. The consult note from this visit was reviewed today. In regards to the recurrent and ongoing pharyngitis I placed a referral for ENT at the last visit. Unfortunately when she called to schedule the appointment she was told that the practice is not accepting any new patients. Be that as it may her symptoms completely resolve without any further intervention. In regards to her vitamin-D deficiency she continues to take a multivitamin daily as directed. In regards to her generalized anxiety disorder she continues to work with the outside psychiatrist and counselor. Her Wellbutrin was recently increased with positive effect. She has had some weight loss since the medication has been increased. Exam: awake alert, NAD TM intact and clear bilat pharynx clear No AC adenopathy RRR LS CTAB Mood and affect appropriate Plan: Since she is feeling better and has no more symptoms of pharyngitis, okay to cancel the ENT consult. Recommend to continue care with her counselor and prescriber. Continue all medications as currently prescribed. I would like to see her back before the end of the year for complete physical exam, sooner as needed. This note is constructed using voice recognition software. While every effort has been made to ensure accuracy in dynamo repairer, still errors may have been included Sometimes, these errors may affect the content or meaning of the given sentence . [facility] Medical History Chronic idiopathic constipation Vitamin D deficiency Obesity (BMI 30-39.9) Intermittent palpitations IBS (irritable bowel syndrome) Generalized anxiety disorder Surgical History H/O removal of cyst History of incision and drainage History of hemorrhoidectomy Family History Father CAD (coronary artery disease) HTN (hypertension) Bipolar disorder Substance use disorder Mental health disorder Mother Thyroid disorder Bipolar disorder Substance use disorder Mental health disorder Maternal Aunt Bipolar disorder Substance use disorder Mental health disorder Maternal Uncle Myocardial infarction Bipolar disorder Substance use disorder Mental health disorder Paternal Aunt Bipolar disorder Substance use disorder Mental health disorder Paternal Uncle Bipolar disorder Substance use disorder Mental health disorder Social History Housing: House Alcohol intake: never Patient Tobacco Use Status: Never used Tobacco e-Cigarette/Vaping Use: Never Used service: No Current occupational status: unemployed Cognitive needs: No Hearing needs: No Vision needs: Yes Female Reproductive History Menstrual Age of Menarche: 10 Questionnaire PHQ-9 Over the last 2 weeks, how often have you been bothered by any of the following problems? 1. Little interest or pleasure in doing things: several days 2. Feeling down, depressed, or hopeless: several days 3. Trouble falling or staying asleep, or sleeping too much: more than half the days 4. Feeling tired or having little energy: nearly every day 5. Poor appetite or overeating: nearly every day 6. Feeling bad about yourself - or that you are a failure or have let yourself or your family down: not at all 7. Trouble concentrating on things, such as reading the newspaper or watching television: more than half the days 8. Moving or speaking so slowly that other people could have noticed. Or the opposite - being so fidgety or restless that you have been moving around a lot more than usual: not at all 9. Thoughts that you would be better off or of hurting yourself in some way: not at all Total score: 12 Depression Screening Interpretation: Positive Depression Screening Done: Yes 98033 - PHQ-9 Billing: Yes Source: Developed by Drs. Shashank Modi, Macrina Goldstein, Rupert Carbajal and colleagues, with an educational khoa from [facility]. Thrive Questionnaire Date Thrive assessed: 04/15/24 I am a: Patient What is your living situation today?: I have a steady place to live Within the past 12 months, did the food you bought not last and you didn't have the money to get more?: Often true Within the past 12 months, did you worry whether your food would run out before you got money to buy more?: Often true Do you have trouble paying for medicines?: No Do you have trouble getting transportation to medical appointments?: No Do you have trouble paying your heating and electricity bill?: Yes Do you have trouble taking care of your child, family member or friend?: No Do you have trouble with day-to-day activities such as bathing, preparing meals, shopping, managing finances, etc.?: Yes Are you currently unemployed and looking for a job?: Yes Are you interested in more education?: Yes Please select the resources that you would like help with: None THRIVE Score: 3 AUDIT C Alcohol Use Questionnaire (AUDIT-C) 2. How many drinks containing alcohol do you have on a typical day when you are drinking?: 1 or 2 3. How often do you have six or more drinks on one occasion?: Never Total Score: 0 VELIA-7 AMB Questionnaire VELAI-7 Date VELIA - 7 assessed: 04/15/24 Feeling nervous, anxious, or on edge: 3 = Nearly every day Not being able to stop or control worryin = Nearly every day Worrying too much about different things: 3 = Nearly every day Trouble relaxin = More than half the days Being so restless that it is hard to sit still: 0 = Not at all Becoming easily annoyed or irritable: 1 = Several days Feeling afraid as if something awful might happen: 0 = Not at all Total VELIA-7 score (0-4 normal; 5-9 mild; 10-14 moderate; 15-21 severe): 12 Source: Developed by Drs. Shashank Modi, Macrina Goldstein, Rupert Carbajal and colleagues, with an educational khoa from [facility]. VELIA-7 Assessment Billing VELIA-7 Assessment Tool: VELIA-7 Assessment 10615 Physical exam (Primary Care) Vital Signs: Last Vital Signs Pulse 77 04/15/24 13:03 Resp 14 04/15/24 13:03 BP 104/66 04/15/24 13:03 Pulse Ox 97 04/15/24 13:03 Oxygen Delivery Method Room Air 04/15/24 13:03 BMI result Body Mass Index 38.7 Tobacco/Smoking Status: Tobacco use Status Tobacco use date assessed 01/16/24 04/15/24 13:02 Patient Tobacco Use Status Never used Tobacco 04/15/24 13:02 e-Cigarette/Vaping Use Never Used 04/15/24 13:02 PHQ-9: PHQ-9 Score PHQ-9: Total score 12 04/15/24 13:25 Depression Screening Interpretation: Positive Thrive Assessment: Date of Thrive Assessment Date Thrive assessed 04/15/24 04/15/24 13:11 Assessment and Plan Assessment & Plan (1) Vitamin D deficiency: Code(s): E55.9 - Vitamin D deficiency, unspecified (2) Generalized anxiety disorder: Comment: Followed by Dr. Henry Kitchen Code(s): F41.1 - Generalized anxiety disorder (3) Strep pharyngitis: Comment: resolved Code(s): J02.0 - Streptococcal pharyngitis (4) Cervical cancer screening: Comment: 03/26/2024 Pap is negative with negative HPV. Code(s): Z12.4 - Encounter for screening for malignant neoplasm of cervix Coding Level of Care Code Est Pt Level 3 (86379) Diagnoses Vitamin D deficiency E55.9 Generalized anxiety disorder F41.1 Strep pharyngitis J02.0 Cervical cancer screening Z12.4 Additional Codes VELIA-7 Assessment Billing - VELIA-7 Assessment Tool: VELIA-7 Assessment [id number] ([id number])
[2024-04-15 13:03] VITALS: BP 104/66; PULSE 77; RESP 14; O2SAT 97; BMI 38.7
== END 2024-04-15 13:35 | disposition home or self-care (01) ==
PROVIDERS: PCP Nurse Practitioner Family; Visit Provider Nurse Practitioner Family
DX: F41.1 Generalized anxiety disorder (principal); E55.9 Vitamin D deficiency, unspecified; J02.0 Streptococcal pharyngitis; Z12.4 Encounter for screening for malignant neoplasm of cervix
CPT/HCPCS: 96127; 99213

== ENCOUNTER 2024-06-30 11:55 | Outpatient (AMB) | payer OTHER, SELFPAY ==
--- NOTE | 2024-06-30 12:09 | A.OFFPC_ITS ---
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: No Allergies No Known Allergies [No Known Allergies*] Allergy (Verified 06/30/24 12:26) Medication List - Last Reconciled 06/30/24 by ANAND Mejia- bupropion HCl XL 150 mg PO QAM etonogestrel (Nexplanon) subdermal ibuprofen 800 mg PO Q8H PRN jsgkbk-xaqsuqke-bbabhav 36,000-114,000- 180,000 unit (Creon) 2 caps PO BID Tobacco use date assessed: 01/16/24 Dental Screening Dental Screen Date: 01/16/24 HPI HPI Comments History of Present Illness Details 29-year-old female with exocrine pancrea tic insufficiency, vitamin-D deficiency, obesity, IBS, generalized anxiety disorder, chronic constipation status post incision and drainage foot abscess on the right heel positive MRSA in 2008, hemorrhoidectomy in 2019 Health maintenance pap 2020, 2023 WNL Tdap 2017 Flu vaccine declined Specialists 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 She reports experiencing increased symptoms of IBS this time of year, notably constipation and upper abdominal bloating. These symptoms appear exacerbated by heightened anxiety. A consumer marketing manager previously diagnosed the patient with exocrine pancreatic insufficiency approximately nine months ago, after which she was prescribed Creon, but she has since discontinued its use without follow-up prescriptions. The cessation of Creon coincided with a return to regular bowel function until recent anxiety exacerbations. The patient notes her Wellbutrin (bupropion) dose is maintained at 150 mg, and she is aware it might contribute to constipation. No significant change in other psychiatric treatment, as she continues under the care of her psychiatrist and counselor. Health Maintenance - Pap smear up to date. - Tetanus shot received in 2017, valid f or ten years. - Patient declines annual flu vaccinatio n. - Recent eye examination approximately t wo months ago with no noted changes. - Laboratory results from January were with in normal limits. Physical Exam General: Well developed, well nourished, in no acute distress. Appears stated age. Head: Normocephalic, atraumatic. Eyes: Pupils are equal, round and reactive to light and accommodation. Conjunctivae are clear. Vision grossly normal. Ears: Tympanic membranes clear bilaterally, external auditory canal within normal limits Nose: Patent, without discharge. Mouth: There are no ulcers or lesions noted. No inflammation, no post nasal drip, no plaques nor exudates. Neck: Supple, no adenopathy or thyromegaly. Lungs: Clear to auscultation bilaterally. No rales, rhonchi or wheeze noted. Good air flow in all hensley. Heart: Regular rate and rhythm. No murmurs, click, rubs or gallops are noted. Abdomen: Bowel sounds present in all quadrants. The abdomen is soft, nontender, with no masses or organomegaly noted. No hernias are noted. Patient reports bloating and constipation, but no pain upon examination. Musculoskeletal: Joints are nontender, without swelling, redness, or effusions. Range of motion is observed to be normal. Pulses: Peripheral pulses are equal and palpable bilaterally. Extremities: No clubbing, cyanosis nor edema is noted. Neurologic: Gait and station normal. Cranial Nerves 2-12 intact. Motor strength grossly symmetrical and intact. No sensory loss. Balance normal. Skin: No rashes, ulcers, or lesions noted. Turgor is good. Skin color is good. Hair and nails are without abnormalities. Psych: Normal eye contact, affect and mood appropriate, and normal interactions. Patient is alert and appropriate to context. Results Labs 06/25/2023 normal CBC, normal CMP, normal lipid profile, vitamin-D low, normal TSH Labs from 01/25/2024 show a normal CMP, LDL 106, vitamin-D normal Plan - Irritable Bowel Syndrome: The patient? s IBS symptoms appear to correlate with increased anxiety. Prescribe Creon as the patient had its previous benefit. Monitor and adjust measure as needed. - Exocrine Pancreatic Insufficiency: Res ume Creon therapy as previously prescribed for digestive support. - Anxiety Disorder: Continue monitoring psychiatric care under current specialist. Evaluate if changes in treatment or environmental factors influence gastrointestinal symptoms. Patient was informed and verbally consented to the use of an ambient scribe for clinic note documentation during this visit. Discussion Notes During this visit, I evaluated the patient's IBS and its potential exacerbation by her anxiety disorder. We discussed the previous diagnosis of exocrine pancreatic insufficiency and the benefits experienced with Creon therapy. I have agreed to resume the prescription for Creon due to its prior efficacy in managing digestive symptoms. We talked about constipation as a potential side effect of her current Wellbutrin dosage. I also advised the patient about maintaining regular communication regarding her gastrointestinal health, particularly if symptoms persist or worsen. Preventative health measures were reviewed and were current, aside from the optional flu vaccine, which the patient declined. Lab results from her last examination were satisfactory, and no urgent need to repeat them was identified. Patient Instructions - Resume Creon as previously prescribed to aid digestion. - Monitor symptoms and report any signif icant changes or worsening of gastroi ntestinal distress. - Continue with current psychiatric debbie tments and communicate any concerns with your mental health specialist. - Follow up routinely for physical asses sments and as needed based on symptoms. - Revisit the decision on the annual flu shot next season. RTO 1 YEAR CPE [facility] Medical History Chronic idiopathic constipation Vitamin D deficiency Obesity (BMI 30-39.9) Intermittent palpitations IBS (irritable bowel syndrome) Generalized anxiety disorder Surgical History H/O removal of cyst History of incision and drainage History of hemorrhoidectomy Family History Father CAD (coronary artery disease) HTN (hypertension) Bipolar disorder Substance use disorder Mental health disorder Mother Thyroid disorder Bipolar disorder Substance use disorder Mental health disorder Maternal Aunt Bipolar disorder Substance use disorder Mental health disorder Maternal Uncle Myocardial infarction Bipolar disorder Substance use disorder Mental health disorder Paternal Aunt Bipolar disorder Substance use disorder Mental health disorder Paternal Uncle Bipolar disorder Substance use disorder Mental health disorder Social History Housing: House Alcohol intake: never Patient Tobacco Use Status: Never used Tobacco e-Cigarette/Vaping Use: Never Used service: No Current occupational status: unemployed Cognitive needs: No Hearing needs: No Vision needs: Yes Female Reproductive History Menstrual Age of Menarche: 10 Questionnaire PHQ-9 Over the last 2 weeks, how often have you been bothered by any of the following problems? 1. Little interest or pleasure in doing things: nearly every day 2. Feeling down, depressed, or hopeless: nearly every day 3. Trouble falling or staying asleep, or sleeping too much: nearly every day 4. Feeling tired or having little energy: nearly every day 5. Poor appetite or overeating: nearly every day 6. Feeling bad about yourself - or that you are a failure or have let yourself or your family down: nearly every day 7. Trouble concentrating on things, such as reading the newspaper or watching television: nearly every day 8. Moving or speaking so slowly that other people could have noticed. Or the opposite - being so fidgety or restless that you have been moving around a lot more than usual: not at all 9. Thoughts that you would be better off or of hurting yourself in some way: not at all Total score: 21 26520 - PHQ-9 Billing: Yes Source: Developed by Drs. Shashank Modi, Macrina Goldstein, Rupert Carbajal and colleagues, with an educational koha from [employer]. Thrive Questionnaire Date Thrive assessed: 06/30/24 I am a: Patient What is your living situation today?: I have a steady place to live Within the past 12 months, did the food you bought not last and you didn't have the money to get more?: Never true Within the past 12 months, did you worry whether your food would run out before you got money to buy more?: Sometimes True Do you have trouble paying for medicines?: No Do you have trouble getting transportation to medical appointments?: No Do you have trouble paying your heating and electricity bill?: Yes Do you have trouble taking care of your child, family member or friend?: No Do you have trouble with day-to-day activities such as bathing, preparing meals, shopping, managing finances, etc.?: Yes Are you currently unemployed and looking for a job?: Yes Are you interested in more education?: Yes Please select the resources that you would like help with: None Currently or been in a relationship where the following occur: I choose not to answer THRIVE Score: 2 AUDIT C Alcohol Use Questionnaire (AUDIT-C) 1. How often do you have a drink containing alcohol?: Monthly or less Total Score: 1 VELIA-7 AMB Questionnaire VELIA-7 Date VELIA - 7 assessed: 06/30/24 Feeling nervous, anxious, or on edge: 3 = Nearly every day Not being able to stop or control worryin = Nearly every day Worrying too much about different things: 3 = Nearly every day Trouble relaxin = Nearly every day Being so restless that it is hard to sit still: 0 = Not at all Becoming easily annoyed or irritable: 2 = More than half the days Feeling afraid as if something awful might happen: 3 = Nearly every day Total VELIA-7 score (0-4 normal; 5-9 mild; 10-14 moderate; 15-21 severe): 17 Source: Developed by Drs. Shashank Modi, Macrina Goldstein, Rupert Carbajal and colleagues, with an educational khoa from [employer]. VELIA-7 Assessment Billing VELIA-7 Assessment Tool: VELIA-7 Assessment 05565 Physical exam (Primary Care) Vital Signs: Last Vital Signs Pulse 66 06/30/24 12:12 Resp 12 06/30/24 12:12 BP 118/68 06/30/24 12:12 Pulse Ox 98 06/30/24 12:12 Oxygen Delivery Method Room Air 06/30/24 12:12 BMI result Body Mass Index 39.3 Tobacco/Smoking Status: Tobacco use Status Tobacco use date assessed 01/16/24 06/30/24 12:11 Patient Tobacco Use Status Never used Tobacco 06/30/24 12:11 e-Cigarette/Vaping Use Never Used 06/30/24 12:11 PHQ-9: PHQ-9 Score PHQ-9: Total score 21 06/30/24 12:24 Thrive Assessment: Date of Thrive Assessment Date Thrive assessed 06/30/24 06/30/24 12:11 Currently or been in a relationship where the following occur: I choose not to answer Coding Level of Care Code Est Pt Prev Care 18-39y(39670) Diagnoses Encounter for general adult medical examination without abnormal findings Z00.00 Exocrine pancreatic insufficiency K86.81 Generalized anxiety disorder F41.1 Irritable bowel syndrome with constipation K58.1 Irritable bowel syndrome type: with constipation Additional Codes VELIA-7 Assessment Billing - VELIA-7 Assessment Tool: VELIA-7 Assessment 33611 ([id number]) PHQ-9 - 78352 - PHQ-9 Billing: Yes ([id number]) Assessment & Plan Assessment & Plan (1) Encounter for general adult medical examination without abnormal findings: Code(s): Z00.00 - Encounter for general adult medical examination without abnormal findings (2) Exocrine pancreatic insufficiency: Code(s): K86.81 - Exocrine pancreatic insufficiency Category: Medical (3) Generalized anxiety disorder: Comment: Followed by Dr. Henry Kitchen Code(s): F41.1 - Generalized anxiety disorder Category: Medical (4) IBS (irritable bowel syndrome): Code(s): K58.9 - Irritable bowel syndrome, unspecified Category: Medical Qualifiers: Irritable bowel syndrome type: with constipation Qualified Code(s): K58.1 - Irritable bowel syndrome with constipation Plan . Medications: Refilled fghqbv-dapzhnby-zihmiop 36,000-114,000- 180,000 unit (Creon) administer with meals and/or snacks 2 caps PO BID 120 caps 6RF K58.9 - Irritable bowel syndrome, unspecified, K59.04 - Chronic idiopathic constipation Patient Instructions: Health screenings for women You should visit your health care provider from time to time, even if you are healthy. The purpose of these visits is to: Screen for medical issues Assess your risk for future medical problems Encourage a healthy lifestyle Update vaccinations and other preventive care services Help you get to know your provider in case of an illness Information Even if you feel fine, you should still see your provider for regular checkups. These visits can help you avoid problems in the future. For example, the only way to find out if you have high blood pressure is to have it checked regularly. High blood sugar and high cholesterol levels also may not have any symptoms in the early stages. A simple blood test can check for these conditions. There are specific times when you should see your provider or receive specific health screenings. The [place] Preventive Services Task Force publishes a list of recommended screenings. Below are screening guidelines for women ages 18 to 39. BLOOD PRESSURE SCREENING Your blood pressure should be checked at least once every 3 to 5 years if: Your blood pressure is in the normal range (top number less than 120 mm Hg and bottom number less than 80 mm Hg) You don't have risk factors for high blood pressure Ask your provider if you need your blood pressure checked more often if: The top number is 120 to 129 mm Hg or the bottom number is 70 to 79 mm Hg You have diabetes, heart disease, kidney problems, are overweight, or have certain other health conditions You have a first-degree relative with high blood pressure You are Black You had high blood pressure during a If the top number is 130 mm Hg or greater or the bottom number is 80 mm Hg or greater, this is considered stage 1 hypertension. Schedule an appointment with your provider to learn how you can reduce your blood pressure. Watch for blood pressure screenings in your area. Ask your provider if you can stop in to have your blood pressure checked. BREAST CANCER SCREENING Experts do not agree about the benefits of breast self-exams in finding breast cancer or saving lives. Talk to your provider about what is best for you. A screening mammogram is not recommended for most women under age 40. Your provider may discuss and recommend mammograms, MRI scans, or ultrasounds if you have an increased risk for breast cancer, such as: A mother or sister who had breast cancer at a young age (most often starting screening earlier than the age the close relative was diagnosed) You carry a high-risk genetic marker CERVICAL CANCER SCREENING Cervical cancer screening should start at age 21 years unless your provider advises otherwise. After the first test: Women ages 21 through 29 should have a Pap test every 3 years. Exoprts do not agree on whether HPV testing is recommended for this age group. Women ages 30 through 65 should be screened with either a Pap test every 3 years or the HPV test every 5 years or both tests every 5 years (called cotesting ). Women who have been treated for precancer (cervical dysplasia) should continue to have Pap tests for 20 years after treatment or until age 65, whichever is longer. If you have had your uterus and cervix removed (total hysterectomy), and you have not been diagnosed with cervical cancer or precancer (high grade cervical neoplasia), you do not need cervical cancer screening. CHOLESTEROL SCREENING Cholesterol screening should begin at: Age 45 for women with no known risk factors for coronary heart disease Age 20 for women with known risk factors for coronary heart disease Repeat cholesterol screening should take place: Every 5 years for women with normal cholesterol levels More often if changes occur in lifestyle (including weight gain and diet) More often if you have diabetes, heart disease, kidney problems, or certain other conditions DIABETES SCREENING You should be screened for diabetes starting at age 35 and then repeated every 3 years if you have no risk factors for diabetes. Screening may need to start earlier and be repeated more often if you have other risk factors for diabetes, such as: You have a first degree relative with diabetes. You are overweight or have obesity. You have high blood pressure, prediabetes, or a history of heart disease. Screening for diabetes should be done if you are planning to become and you are overweight and have other risk factors such as high blood pressure. DENTAL EXAM Go to the dentist once or twice every year for an exam and cleaning. Your dentist will evaluate if you need more frequent visits. EYE EXAM Have an eye exam every 5 to 10 years before age 40. If you have vision problems, have an eye exam every 2 years or more often if recommended by your provider. You should have an eye exam that includes an examination of your retina (back of your eye) at least every year if you have diabetes. IMMUNIZATIONS Commonly needed vaccines include: Flu shot: get one every year. COVID-19 vaccine: ask your provider what is best for you. Tetanus-diphtheria and acellular pertussis (Tdap) vaccine: have one at or after age 19 as one of your tetanus-diphtheria vaccines if you did not receive it as an adolescent. Tetanus-diphtheria: have a booster (or Tdap) every 10 years. Varicella vaccine: receive 2 doses if you never had chickenpox or the varicella vaccine. Hepatitis B vaccine: receive 2, 3, or 4 doses, depending on your exact circumstances. Measles, mumps, and rubella (MMR) vaccine: receive 1 to 2 doses if you are not already immune to MMR. Your provider can tell you if you are immune. Ask your provider about the human papillomavirus (HPV) vaccine if: You have not received the HPV vaccine in the past You have not completed the full vaccine series (you should catch up on this shot) Ask your provider if you should receive other immunizations if you have certain health problems that increase your risk for some diseases such as pneumonia. INFECTIOUS DISEASE SCREENING Women who are sexually active should be screened for chlamydia and gonorrhea up until age 25. Women 25 years and older should be screened for chlamydia and gonorrhea if at high risk. Screening for hepatitis C: All adults ages 18 to 79 should get a one-time test for hepatitis C. people should be screened at every . Screening for human immunodeficiency virus (HIV): All people ages 15 to 65 should get a one-time test for HIV. Depending on your lifestyle and medical history, you may also need to be screened for infections such as syphilis and HIV, as well as other infections. PHYSICAL EXAM All adults should visit their provider from time to time, even if they are healthy. The purpose of these visits is to: Screen for disease Assess your risk of future medical problems Encourage a healthy lifestyle Update your vaccinations and other preventive care services Maintain a relationship with a provider in case of an illness Your height, weight, and BMI should be checked at every exam. During your exam, your provider may ask you about: Depression and anxiety Diet and exercise Alcohol and tobacco use Safety issues, such as using seat belts, smoke detectors, and intimate partner violence Your medicines and risk for interactions SKIN SELF-EXAM Your provider may check your skin for signs of skin cancer, especially if you're at high risk, such as if you: Have had skin cancer before Have close relatives with skin cancer Have a weakened immune system OTHER SCREENING Talk with your provider about colon cancer screening if you have a strong family history of colon cancer or polyps, or if you have had inflammatory bowel disease or polyps yourself. Routine bone density screening of women under 40 is not recommended.
[2024-06-30 12:12] VITALS: BP 118/68; PULSE 66; RESP 12; O2SAT 98; BMI 39.3
== END 2024-06-30 12:38 | disposition home or self-care (01) ==
PROVIDERS: PCP Nurse Practitioner Family; Visit Provider Nurse Practitioner Family
DX: Z00.00 Encounter for general adult medical examination without abnormal findings (principal); K86.81 Exocrine pancreatic insufficiency; F41.1 Generalized anxiety disorder; K58.1 Irritable bowel syndrome with constipation

== ENCOUNTER → 2024-06-30 11:55 | Outpatient (BNVA) | payer OTHER, SELFPAY | PROVIDERS: PCP Nurse Practitioner Family; Visit Provider Nurse Practitioner Family | DX: Z00.00 Encounter for general adult medical examination without abnormal findings (principal); K86.81 Exocrine pancreatic insufficiency; F41.1 Generalized anxiety disorder; K58.1 Irritable bowel syndrome with constipation | CPT/HCPCS: 96127 ==

== ENCOUNTER 2025-07-07 08:00 | Outpatient (REF) | payer OTHER, SELFPAY ==
[2025-07-07 11:33] LABS: Hematocrit 42.8 % (37.0-47.0); Hemoglobin 13.7 g/dl (12.0-16.0); Mean Corpuscular HGB Conc 32.0 g/dl (31.0-35.0); Mean Corpuscular Hemoglobin 29.1 pg (27.0-33.0); Mean Corpuscular Volume 90.9 fL (80.0-98.0); NRBC Abs Auto 0.000 X10*3/uL (0.0-0.012); NRBC Pct Auto 0.0 /100WBC (0.0-0.2); Platelet Count 283 X10*3/uL (160-400); Red Blood Count 4.71 X10*6/uL (4.20-5.50); White Blood Count 5.7 X10*3/uL (4.8-10.8)
[2025-07-07 11:59] LABS: Alanine Aminotransferase 16 U/L (0-31); Albumin Level 4.5 g/dL (3.5-5.0); Alkaline Phosphatase 49 U/L (39-117); Anion Gap 12 (12-20); Aspartate Amino Transferase 17 U/L (5-31); Blood Urea Nitrogen 11 mg/dL (9-16); Calcium 9.4 mg/dL (8.4-10.2); Carbon Dioxide 28 mmol/L (22-29); Chloride 108 mmol/L (96-108); Estimated Glomerular Filt Rate > 60; Iron 100 mcg/dL (30-160); Percent Iron Saturation 36 % (15-50); Potassium 4.5 mmol/L (3.3-5.1); Sodium 143 mmol/L (135-145); Total Iron Binding Capacity 280 mcg/dL (228-428); Total Protein 6.8 g/dL (6.5-8.0); Unsaturated Iron Binding 180 ug/dL
[2025-07-07 12:18] LABS: Ferritin 56 ng/mL (10-122); Folate 9.4 ng/mL (> or = 4.0); Vitamin B12 323 pg/mL (200-900)
== END 2025-07-07 08:01 | disposition home or self-care (01) ==
LOC: HO.WFDLDS 08:00
PROVIDERS: PCP Nurse Practitioner Family; Visit Provider Nurse Practitioner Family
DX: Z00.00 Encounter for general adult medical examination without abnormal findings (principal); E55.9 Vitamin D deficiency, unspecified; E66.9 Obesity, unspecified; Z13.31 Encounter for screening for depression; Z13.39 Encounter for screening examination for other mental health and behavioral disorders; K59.09 Other constipation; K86.81 Exocrine pancreatic insufficiency; F41.1 Generalized anxiety disorder; K58.1 Irritable bowel syndrome with constipation; R09.82 Postnasal drip; M25.50 Pain in unspecified joint; Z13.1 Encounter for screening for diabetes mellitus
CPT/HCPCS: 36415; 80053; 82306; 82570; 82607; 82728; 82746; 83036; 83540; 84443; 85027; 96127; 99395

== ENCOUNTER 2025-07-07 08:00 | Outpatient (AMB) | payer OTHER, SELFPAY ==
--- NOTE | 2025-07-07 08:01 | A.OFFPC_ITS ---
Vital Signs 07/07/25 08:06 Height 5 ft 3 in Weight 207 lb 4 oz BMI 36.7 BP 123/55 L Blood Pressure Location Lt brachial Position Sitting Respiration 16 Pulse 72 Pulse Source Pulse Oximeter Temp 97.9 F Temp Source Oral Pulse Oximetry (%) 100 Oxygen Delivery Method Room Air Intake Visit Reasons: CPE - see comments Intake Note: patient here for CPE Manager Dairy Required: No Is last menstrual period known: Yes Last menstrual period: 07/04/25 Post menopausal: No Patient : No Allergies No Known Allergies (No Known Allergies*) Allergy (Verified 07/07/25 08:18) Medication List - Last Reconciled 07/07/25 by Dania Castrejon, NURSE INFECTION CONTROL-BC bupropion HCl XL 150 mg PO QAM etonogestrel (Nexplanon) subdermal ibuprofen 800 mg PO Q8H PRN stjols-visupdcb-biflrul (pork) 36,000-114,000- 180,000 unit (Creon) 2 caps PO B ID Tobacco use date assessed: 01/16/24 Dental Screening Dental Screen Date: 07/07/25 Did you have a dental visit in the last 12 months?: Yes Did you have a dental problem in the last 6 months where you did not have access to dental care?: No Was dental information given to patient?: Patient has dentist HPI HPI Comments History of Present Illness Details 30-year-old female with exocrine pancrea tic insufficiency, vitamin-D deficiency, obesity, IBS, generalized anxiety disorder, chronic constipation status post incision and drainage foot abscess on the right heel positive MRSA in 2008, hemorrhoidectomy in 2019 Social: works at [employer] Fhx: No changes Health maintenance pap 2020, 2023 WNL Tdap 2017 Flu vaccine declined 07/07/25 Specialists Nutrition no longer active GI referred [facility] [place] [facility] [employer] [facility] and prescriber Optho wears glasses last exam 06/2025 reports pressure in bilat eye high, will be getting more testing done History of Present Illness The patient is a 30 year old individual presenting for a complete physical examination and to address concerns of postnasal drip, recurrent constipation, and joint pain. Obesity: - The patient has a history of obesity w ith a noted BMI of 36.7. - The patient has been more active in [employer] recently and has experienced some weight loss. Chronic Postnasal Drip: - The patient reports a persistent, peter y postnasal drip and chest congestion that began after a previous throat issue 1 year ago - The patient denies any associated whee zing or nocturnal cough and has not used any nasal sprays for the symptoms. Irritable Bowel Syndrome with Constipation and Exocrine pancreatic insuff: - The patient has a history of IBS and c hronic constipation, with a recurrence of symptoms. - Bowel movements occur approximately on ce every three days. - Increased physical activity, which pre viously helped with regularity, is no longer effective. - The patient continues to take Creon fo r pancreatic insufficiency and is not using other agents for bowel movements. - Fell out of care w/ [facility], new referr al placed today Arthralgia: - The patient reports general achiness a nd popping sensations, primarily in the back and hips, which worsen in cold weather. - The patient denies any specific injury , joint swelling, or family history of arthritic diseases. - The patient occasionally experiences a burning sensation in the right arm up to the elbow and reports that the hands can sometimes lock up in cold weather. - The back pain is described as sometime s being debilitating, and the patient acknowledges having poor posture. Generalized Anxiety Disorder and Depression: - The patient has a history of generaliz ed anxiety disorder and depression, managed with bupropion. - The patient continues to see a pet adoption counselor or and prescriber for mental health and feels to be in a better place since the last visit. - The patient acknowledges a connection between gut health and mental health. Elevated Intraocular Pressure: - A recent eye exam revealed slightly el evated intraocular pressure. - The patient is awaiting a call for mikhail mobley to undergo further testing for possible early signs of glaucoma. - The patient denies any known family hi story of glaucoma. Past Medical History - Obesity with a BMI of 46.7 - Pancreatic insufficiency, treated with Creon - Generalized anxiety disorder and depre ssion, treated with bupropion - History of vitamin D deficiency - Irritable bowel syndrome (IBS) - Chronic constipation - Hyperlipidemia with LDL of 106 mg/dL i n January 2024 - Uses Nexplanon for contraception - No known drug allergies Family History - Denies family history of systemic arth ritic diseases. - Denies family history of glaucoma. - No recent changes in family medical hi story. Social History - Employment: The patient works part-[employer] at [employer]. - Exercise: The patient has been more ac tive in the gym. - Sexual history: The patient is sexuall y active and denies any concerns for or exposure to sexually transmitted diseases. 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 Health Maintenance - The patient is up-to-date on vaccinati ons, except for the flu shot, which was declined. - Last Pap smear was in 2023. - A recent eye exam showed elevated intr aocular pressure, with a pending referral for glaucoma evaluation. - Screening labs from January 2024 showed a n elevated LDL of 106 mg/dL; vitamin D was normal. - Agreed to comprehensive screening labs today to check vitamin D, cholesterol, and screen for anemia, kidney disease, and diabetes. Review of Systems - Respiratory: Reports constant chest co ngestion and postnasal drip. Denies wheezing or nocturnal cough. - Gastrointestinal: Reports constipation with bowel movements every three days. - Musculoskeletal: Reports generalized a marcella joints, primarily in the back and hips, which worsen in cold weather. Reports back pain can be debilitating. Reports occasional locking of hands in cold weather. Denies any specific injury or joint swelling. - Neurological: Reports occasional burni ng sensation from right arm to elbow. - Eyes: Reports elevated eye pressure fo und on recent exam. - Psychiatric: Reports high-functioning anxiety but feeling in a better place mentally. Physical Exam General: Well developed, well nourished, in no acute distress. Appears stated age. Head: Normocephalic, atraumatic. Eyes: Pupils are equal, round and reactive to light and accommodation. Conjunctivae are clear. Scleras nonicteric bilat. Vision grossly normal. Recent eye exam showed slightly high eye pressure; awaiting further tests for potential early signs of glaucoma. Ears: TMs clear AU, EACS WNL Nose: Patent, without discharge. Complains of chronic postnasal drip. Neck: No carotid bruit bilat. Supple, no adenopathy or thyromegaly. Breast: Edu on SBE Lungs: Clear to auscultation bilaterally. No rales, rhonchi or wheeze noted. Good air flow in all hensley. Reports feeling congested in the chest daily. Heart: Regular rate and rhythm. No murmurs, click, rubs or gallops are noted. Abdomen: Bowel sounds present in all quadrants. The abdomen is soft, nontender, with no masses or organomegaly noted. Tenderness noted upon palpation in a specific area. No hernias are noted. : Deferred. Reviewed recommendations for routine CONTROL TOWER OPERATOR Pulses: Peripheral pulses are equal and palpable bilaterally. Extremities: No clubbing, cyanosis nor edema is noted. Neurologic: Gait and station normal. Cranial Nerves 2-12 intact. Motor strength grossly symmetrical and intact. No sensory loss. Balance normal. Skin: No rashes, ulcers, or lesions noted. Turgor is good. Skin color is good. Hair and nails are without abnormalities. Psych: Normal eye contact, affect and mood appropriate, and normal interactions. Patient is alert and appropriate to context. Reports generalized anxiety disorder and depression, currently on bupropion. High functioning anxiety noted. Results - Labs (January 2024): LDL cholesterol was elevated at 106 mg/dL. Vitamin D level was normal. A1c, blood counts, and kidney function were all fine. - Tests (recent): Eye exam revealed elev ated intraocular pressure. Medical Decision Making The patient is a 30-year-old individual presenting for a complete physical with several chronic and new complaints. The primary concerns addressed were chronic postnasal drip, worsening constipation associated with IBS, and generalized arthralgias. The chronic postnasal drip, upon examination, does not appear to be allergic in origin. Therefore, a trial of a nasal drying agent, ipratropium, is a logical first step rather than a nasal steroid or antihistamine. The patient's GI symptoms, including constipation and pancreatic insufficiency, warrant specialist evaluation, especially since a previous referral was not completed, last seen 2023, note indicates RTO 6 mo - not scheduled; a new referral to gas tro[facility]ology is appropriate. The patient's arthralgias lack red flag symptoms such as swelling or redness, making a systemic inflammatory condition unlikely at this time. The symptoms are more consistent with mechanical issues or normal age-related changes, managed with education on core strengthening and proper exercise mechanics. Comprehensive screening labs are ordered to rule out underlying metabolic or hematologic causes for the patient's symptoms and for general health maintenance. The plan is to follow up in one year for an annual physical exam, with as-needed visits in the interim, and to manage results via the patient portal. Plan 1. Wellness Visit - Ordered comprehensive screening labs, including CBC, CMP, A1c, lipid panel, and vitamin D level, to be drawn today. - Patient declined the annual flu shot. - Patient instructions provided to junaid pererae a follow-up for a one-year physical and to check the patient portal for lab results and feedback. 2. Chronic Postnasal Drip - Prescribed ipratropium nasal spray, a nasal drying agent, to be used two sprays twice daily as needed. - Advised patient to use regularly until symptoms are controlled, then as n eeded. - Patient to follow up if there is no im provement, as an alternative treatment may be needed. 3. Irritable Bowel Syndrome With Constip ation & Pancreatic Exocrine Insufficiency - Renewed the prescription for Creon. - Placed a new referral to [facility] for further evaluation and management; they will contact the patient to schedule. 4. Arthralgia - Reassured the patient that current sym ptoms are not indicative of a systemic disease. - Provided education on the importance o f a strong core for back support and using proper, non-twisting form during exercise. - Advised patient to return for re-evalu ation if any joints become red or swollen or if pain becomes debilitating. 5. Elevated Intraocular Pressure - Acknowledged recent ophthalmology find ing of high intraocular pressure and the pending specialist referral for glaucoma evaluation. - [facility] 6. Generalized Anxiety Disorder And Depr ession - Patient reports stable mood and contin ues engagement with counselor and prescriber. - The plan is to continue current manage ment. Patient Instructions - Please get your blood work done today before you leave the clinic. - I will post your lab results with my lisandra linton on the patient portal for you to review. - I have placed a referral to a stomach specialist (net software architect). Their office will call you to schedule an appointment. - I have renewed your prescription for C reon. - For your nasal drip, use the Ipratropi um nasal spray. Use two sprays in each nostril, twice a day. Once your symptoms get better, you can just use it when needed. Please let me know if it does not help. - Regarding your joint pain, it is impor tant to build a strong core to support your back. Be careful with twisting motions when you are at the gym. - Contact us if any of your joints becom e red or swollen, or if the pain makes it hard to do your daily activities. - Please schedule your next yearly physi fatou exam at the [facility]. You can always call to be seen sooner if needed. Consent The patient provided verbal consent for screening blood work after a discussion of what would be checked, including but not limited to vitamin D, cholesterol, and screening for anemia, kidney disease, and diabetes. Patient was informed and verbally consented to the use of an ambient scribe for clinic note documentation during this visit. [facility] Medical History Chronic idiopathic constipation Vitamin D deficiency Obesity (BMI 30-39.9) Intermittent palpitations IBS (irritable bowel syndrome) Generalized anxiety disorder Surgical History H/O removal of cyst History of incision and drainage History of hemorrhoidectomy Family History Father CAD (coronary artery disease) HTN (hypertension) Bipolar disorder Substance use disorder Mental health disorder Mother Thyroid disorder Bipolar disorder Substance use disorder Mental health disorder Maternal Aunt Bipolar disorder Substance use disorder Mental health disorder Maternal Uncle Myocardial infarction Bipolar disorder Substance use disorder Mental health disorder Paternal Aunt Bipolar disorder Substance use disorder Mental health disorder Paternal Uncle Bipolar disorder Substance use disorder Mental health disorder Social History Housing: House Alcohol intake: never Patient Tobacco Use Status: Never used Tobacco e-Cigarette/Vaping Use: Never Used Second Hand Smoke Exposure: Yes (her partner smokes heavy) service: No Current occupational status: unemployed Current occupational exposures/hazards: No Cognitive needs: No Hearing needs: No Vision needs: Yes Female Reproductive History Menstrual Age of Menarche: 10 Date of last menstrual period: 07/04/25 Questionnaire PHQ-9 Over the last 2 weeks, how often have you been bothered by any of the following problems? 1. Little interest or pleasure in doing things: several days 2. Feeling down, depressed, or hopeless: more than half the days 3. Trouble falling or staying asleep, or sleeping too much: several days 4. Feeling tired or having little energy: more than half the days 5. Poor appetite or overeating: more than half the days 6. Feeling bad about yourself - or that you are a failure or have let yourself or your family down: several days 7. Trouble concentrating on things, such as reading the newspaper or watching television: several days 8. Moving or speaking so slowly that other people could have noticed. Or the opposite - being so fidgety or restless that you have been moving around a lot more than usual: several days 9. Thoughts that you would be better off or of hurting yourself in some way: not at all Total score: 11 Depression Screening Interpretation: Positive Depression Screening Follow-up: Existing condition and In treatment Depression Screening Done: Yes 13726 - PHQ-9 Billing: Yes Source: Developed by Drs. Shashank Modi, Macrina Goldstein, Rupert Carbajal and colleagues, with an educational khoa from [employer]. Thrive Questionnaire Date Thrive assessed: 07/07/25 I am a: Patient What is your living situation today?: I have a steady place to live Within the past 12 months, did the food you bought not last and you didn't have the money to get more?: Often true Within the past 12 months, did you worry whether your food would run out before you got money to buy more?: Sometimes True Do you have trouble paying for medicines?: No Do you have trouble getting transportation to medical appointments?: No Do you have trouble paying your heating and electricity bill?: Yes Do you have trouble taking care of your child, family member or friend?: No Do you have trouble with day-to-day activities such as bathing, preparing meals, shopping, managing finances, etc.?: Yes Are you currently unemployed and looking for a job?: No Are you interested in more education?: Yes Please select the resources that you would like help with: None Currently or been in a relationship where the following occur: I choose not to answer THRIVE Score: 3 AUDIT C Alcohol Use Questionnaire (AUDIT-C) 1. How often do you have a drink containing alcohol?: Monthly or less 2. How many drinks containing alcohol do you have on a typical day when you are drinking?: 1 or 2 3. How often do you have six or more drinks on one occasion?: Never Total Score: 1 Score Reviewed/Action Taken: Yes VELIA-7 AMB Questionnaire VELIA-7 Date VELIA - 7 assessed: 07/07/25 Feeling nervous, anxious, or on edge: 3 = Nearly every day Not being able to stop or control worryin = Nearly every day Worrying too much about different things: 3 = Nearly every day Trouble relaxin = Nearly every day Being so restless that it is hard to sit still: 1 = Several days Becoming easily annoyed or irritable: 2 = More than half the days Feeling afraid as if something awful might happen: 2 = More than half the days Total VELIA-7 score (0-4 normal; 5-9 mild; 10-14 moderate; 15-21 severe): 17 Source: Developed by Drs. Shashank Modi, Macrina Goldstein, Rupert Carbajal and colleagues, with an educational khoa from [employer]. VELIA-7 Assessment Billing VELIA-7 Assessment Tool: VELIA-7 Assessment 04597 Physical exam (Primary Care) Vital Signs: Last Vital Signs Temp 97.9 F 07/07/25 08:06 Pulse 72 07/07/25 08:06 Resp 16 07/07/25 08:06 BP 123/55 L 07/07/25 08:06 Pulse Ox 100 07/07/25 08:06 Oxygen Delivery Method Room Air 07/07/25 08:06 BMI result Body Mass Index 36.7 BMI Assessment/Plan discussion: High BMI High, discussed plan: lifestyle Tobacco/Smoking Status: Tobacco use Status Tobacco use date assessed 01/16/24 07/07/25 08:03 Patient Tobacco Use Status Never used Tobacco 07/07/25 08:03 e-Cigarette/Vaping Use Never Used 07/07/25 08:03 PHQ-9: PHQ-9 Score PHQ-9: Total score 11 07/07/25 08:09 Depression Screening Interpretation: Positive Depression Screening Follow-up: Existing condition and In treatment Thrive Assessment: Date of Thrive Assessment Date Thrive assessed 07/07/25 07/07/25 08:09 Currently or been in a relationship where the following occur: I choose not to answer Coding Level of Care Code Est Pt Prev Care 18-39y(09708) Complex visit Add On G2211 Diagnoses Adult general medical exam Z00.00 Obesity (BMI 30-39.9) E66.9 Exocrine pancreatic insufficiency K86.81 Chronic constipation K59.09 Generalized anxiety disorder F41.1 Vitamin D deficiency E55.9 Irritable bowel syndrome with constipation K58.1 Irritable bowel syndrome type: with constipation Influenza vaccination declined Z28.21 Post-nasal drip R09.82 Arthralgia, unspecified joint M25.50 Joint pain location: unspecified Cervical cancer screening Z12.4 Laboratory exam ordered as part of routine general medical examination Z00.00 Additional Codes VELIA-7 Assessment Billing - VELIA-7 Assessment Tool: VELIA-7 Assessment 38606 ([id number]) PHQ-9 - 81564 - PHQ-9 Billing: Yes ([id number]) Assessment & Plan Assessment & Plan (1) Adult general medical exam: Onset Date: ~07/07/25 Code(s): Z00.00 - Encounter for general adult medical examination without abnormal findings Category: Medical (2) Obesity (BMI 30-39.9): Code(s): E66.9 - Obesity, unspecified Category: Medical (3) Exocrine pancreatic insufficiency: Code(s): K86.81 - Exocrine pancreatic insufficiency Category: Medical (4) Chronic constipation: Code(s): K59.09 - Other constipation Category: Medical (5) Generalized anxiety disorder: Comment: Followed by Dr. Henry Kitchen Code(s): F41.1 - Generalized anxiety disorder Category: Medical (6) Vitamin D deficiency: Code(s): E55.9 - Vitamin D deficiency, unspecified Category: Medical (7) IBS (irritable bowel syndrome): Code(s): K58.9 - Irritable bowel syndrome, unspecified Category: Medical Qualifiers: Irritable bowel syndrome type: with constipation Qualified Code(s): K58.1 - Irritable bowel syndrome with constipation (8) Influenza vaccination declined: Onset Date: ~07/07/25 Code(s): Z28.21 - Immunization not carried out because of patient refusal Category: Medical (9) Post-nasal drip: Code(s): R09.82 - Postnasal drip Category: Medical (10) Ache in joint: Code(s): M25.50 - Pain in unspecified joint Category: Medical Qualifiers: Joint pain location: unspecified Qualified Code(s): M25.50 - Pain in unspecified joint (11) Cervical cancer screening: Onset Date: ~03/2024 Comment: 03/26/2024 Pap is negative with negative HPV. Code(s): Z12.4 - Encounter for screening for malignant neoplasm of cervix Category: Medical (12) Laboratory exam ordered as part of routine general medical examination: Code(s): Z00.00 - Encounter for general adult medical examination without abnormal findings Category: Medical Plan . Orders: Orders Comprehensive Met. Panel Today E55.9 - Vitamin D deficiency, unspecified, E66.9 - Obesity, unspecified, Z00.00 - Encounter for general adult medical examination without abnormal findings IRON PROFILE Today E55.9 - Vitamin D deficiency, unspecified, E66.9 - Obesity, unspecified, Z00.00 - Encounter for general adult medical examination without abnormal findings TSH reflex Free T4 Today E55.9 - Vitamin D deficiency, unspecified, E66.9 - Obesity, unspecified, Z00.00 - Encounter for general adult medical examination without abnormal findings Vitamin B12 and Folate Today E55.9 - Vitamin D deficiency, unspecified, E66.9 - Obesity, unspecified, Z00.00 - Encounter for general adult medical examination without abnormal findings Complete Blood Count no Diff Today E55.9 - Vitamin D deficiency, unspecified, E66.9 - Obesity, unspecified, Z00.00 - Encounter for general adult medical examination without abnormal findings Hemoglobin A1c Today E55.9 - Vitamin D deficiency, unspecified, E66.9 - Obesity, unspecified, Z00.00 - Encounter for general adult medical examination without abnormal findings Microalbumin, Random (w Creat) Today E55.9 - Vitamin D deficiency, unspecified, E66.9 - Obesity, unspecified, Z00.00 - Encounter for general adult medical examination without abnormal findings Vitamin D 25-OH Total Today E55.9 - Vitamin D deficiency, unspecified, E66.9 - Obesity, unspecified, Z00.00 - Encounter for general adult medical examination without abnormal findings Ferritin Today E55.9 - Vitamin D deficiency, unspecified, E66.9 - Obesity, unspecified, Z00.00 - Encounter for general adult medical examination without abnormal findings Referrals Gastroenterology Referral K59.09 - Other constipation, K86.81 - Exocrine pancreatic insufficiency Medications: New ipratropium bromide administer into each nostril 2 sprays intranasal BID 30 mL 2RF Refilled qmkwkv-inqufnmq-zhhtbyi (pork) 36,000-114,000- 180,000 unit (Creon) administer with meals and/or snacks 2 caps PO BID 120 caps 6RF K58.9 - Irritable bowel syndrome, unspecified, K59.04 - Chronic idiopathic constipation Patient Instructions: Health screenings for women You should visit your health care provider from time to time, even if you are healthy. The purpose of these visits is to: Screen for medical issues Assess your risk for future medical problems Encourage a healthy lifestyle Update vaccinations and other preventive care services Help you get to know your provider in case of an illness Information Even if you feel fine, you should still see your provider for regular checkups. These visits can help you avoid problems in the future. For example, the only way to find out if you have high blood pressure is to have it checked regularly. High blood sugar and high cholesterol levels also may not have any symptoms in the early stages. A simple blood test can check for these conditions. There are specific times when you should see your provider or receive specific health screenings. The [place] Preventive Services Task Force publishes a list of recommended screenings. Below are screening guidelines for women ages 18 to 39. BLOOD PRESSURE SCREENING Your blood pressure should be checked at least once every 3 to 5 years if: Your blood pressure is in the normal range (top number less than 120 mm Hg and bottom number less than 80 mm Hg) You don't have risk factors for high blood pressure Ask your provider if you need your blood pressure checked more often if: The top number is 120 to 129 mm Hg or the bottom number is 70 to 79 mm Hg You have diabetes, heart disease, kidney problems, are overweight, or have certain other health conditions You have a first-degree relative with high blood pressure You are Black You had high blood pressure during a If the top number is 130 mm Hg or greater or the bottom number is 80 mm Hg or greater, this is considered stage 1 hypertension. Schedule an appointment with your provider to learn how you can reduce your blood pressure. Watch for blood pressure screenings in your area. Ask your provider if you can stop in to have your blood pressure checked. BREAST CANCER SCREENING Experts do not agree about the benefits of breast self-exams in finding breast cancer or saving lives. Talk to your provider about what is best for you. A screening mammogram is not recommended for most women under age 40. Your provider may discuss and recommend mammograms, MRI scans, or ultrasounds if you have an increased risk for breast cancer, such as: A mother or sister who had breast cancer at a young age (most often starting screening earlier than the age the close relative was diagnosed) You carry a high-risk genetic marker CERVICAL CANCER SCREENING Cervical cancer screening should start at age 21 years unless your provider advises otherwise. After the first test: Women ages 21 through 29 should have a Pap test every 3 years. Exoprts do not agree on whether HPV testing is recommended for this age group. Women ages 30 through 65 should be screened with either a Pap test every 3 years or the HPV test every 5 years or both tests every 5 years (called cotesting ). Women who have been treated for precancer (cervical dysplasia) should continue to have Pap tests for 20 years after treatment or until age 65, whichever is longer. If you have had your uterus and cervix removed (total hysterectomy), and you have not been diagnosed with cervical cancer or precancer (high grade cervical neoplasia), you do not need cervical cancer screening. CHOLESTEROL SCREENING Cholesterol screening should begin at: Age 45 for women with no known risk factors for coronary heart disease Age 20 for women with known risk factors for coronary heart disease Repeat cholesterol screening should take place: Every 5 years for women with normal cholesterol levels More often if changes occur in lifestyle (including weight gain and diet) More often if you have diabetes, heart disease, kidney problems, or certain other conditions DIABETES SCREENING You should be screened for diabetes starting at age 35 and then repeated every 3 years if you have no risk factors for diabetes. Screening may need to start earlier and be repeated more often if you have other risk factors for diabetes, such as: You have a first degree relative with diabetes. You are overweight or have obesity. You have high blood pressure, prediabetes, or a history of heart disease. Screening for diabetes should be done if you are planning to become and you are overweight and have other risk factors such as high blood pressure. DENTAL EXAM Go to the dentist once or twice every year for an exam and cleaning. Your dentist will evaluate if you need more frequent visits. EYE EXAM Have an eye exam every 5 to 10 years before age 40. If you have vision problems, have an eye exam every 2 years or more often if recommended by your provider. You should have an eye exam that includes an examination of your retina (back of your eye) at least every year if you have diabetes. IMMUNIZATIONS Commonly needed vaccines include: Flu shot: get one every year. COVID-19 vaccine: ask your provider what is best for you. Tetanus-diphtheria and acellular pertussis (Tdap) vaccine: have one at or after age 19 as one of your tetanus-diphtheria vaccines if you did not receive it as an adolescent. Tetanus-diphtheria: have a booster (or Tdap) every 10 years. Varicella vaccine: receive 2 doses if you never had chickenpox or the varicella vaccine. Hepatitis B vaccine: receive 2, 3, or 4 doses, depending on your exact circu mstances. Measles, mumps, and rubella (MMR) vaccine: receive 1 to 2 doses if you are not already immune to MMR. Your provider can tell you if you are immune. Ask your provider about the human papillomavirus (HPV) vaccine if: You have not received the HPV vaccine in the past You have not completed the full vaccine series (you should catch up on this shot) Ask your provider if you should receive other immunizations if you have certain health problems that increase your risk for some diseases such as pneumonia. INFECTIOUS DISEASE SCREENING Women who are sexually active should be screened for chlamydia and gonorrhea up until age 25. Women 25 years and older should be screened for chlamydia and gonorrhea if at high risk. Screening for hepatitis C: All adults ages 18 to 79 should get a one-time test for hepatitis C. people should be screened at every . Screening for human immunodeficiency virus (HIV): All people ages 15 to 65 should get a one-time test for HIV. Depending on your lifestyle and medical history, you may also need to be screened for infections such as syphilis and HIV, as well as other infections. PHYSICAL EXAM All adults should visit their provider from time to time, even if they are healthy. The purpose of these visits is to: Screen for disease Assess your risk of future medical problems Encourage a healthy lifestyle Update your vaccinations and other preventive care services Maintain a relationship with a provider in case of an illness Your height, weight, and BMI should be checked at every exam. During your exam, your provider may ask you about: Depression and anxiety Diet and exercise Alcohol and tobacco use Safety issues, such as using seat belts, smoke detectors, and intimate partner violence Your medicines and risk for interactions SKIN SELF-EXAM Your provider may check your skin for signs of skin cancer, especially if you're at high risk, such as if you: Have had skin cancer before Have close relatives with skin cancer Have a weakened immune system OTHER SCREENING Talk with your provider about colon cancer screening if you have a strong family history of colon cancer or polyps, or if you have had inflammatory bowel disease or polyps yourself. Routine bone density screening of women under 40 is not recommended.
--- OUTSIDE RECORDS SUMMARY | 2025-07-07 08:03 | XMS_ITS | Encounter Summary ---
Author Organization [employer] Address [address] [facility] [address] [place] [address] Care Team Providers Care Cdl Company Driver Name Role Phone Unavailable Primary Care Provider Unavailabl e Reason for Visit * Reason Onset Date Comments New Patient 04/24/2023 Encounter Details Date Type Department Care Team (Late st Contact Info) Description 04/24/[address] [facility] MEDICINE [address] [place], [place] [id number] Blas Graham MD [address] [place] [address] New Patient Social History Tobacco Use Types Packs/Day Years Used Date Smoking Tobacco: Never Assessed Comments Unknown Sex and Gender Information Value Date Recorded Sex Assigned at Female 07/05/2022 2:46 PM EST Legal Sex Female 2:46 PM EST Gender Identity Choose not to disclose 2:46 PM EST Sexual Orientation Choose not to disclose 2021 2:46 PM EST documented as of this encounter Miscellaneous Notes * Telephone Encounter - Cody Walton - 04/24/2023 12:32 PM EDT Tc to , to offer NOVELTY TWISTER TENDER Appt, pt states is not interested at the time for Paperback Machine Operator with Facility or has foundother Facility. Advised if change of mind to please give facility a call at [phone] documented in this encounter Plan of Treatment Not on file documented as of this encounter Visit Diagnoses Not on filedocumented in this encounter
--- OUTSIDE RECORDS SUMMARY | 2025-07-07 08:03 | XMS_ITS | Clinical Summary ---
Author Organization [facility] Address [address] [facility] [address] [place] [phone] Phone Care Team Providers Care Print Washer Name Role Phone Niko Porter MD Primary Care Provid er Allergies No known active allergies Medications buPROPion (WELLBUTRIN XL) 300 MG ER 24 hr tablet Take 300 mg by mouth every morning. 06/19/2024 Active CREON 36,000-114,000- 180,[address] capsule TAKE 2 CAPSULES BY MOUTH TWICE A DAY WITH MEALS OR SNACKS 07/02/2024 Active Social History Tobacco Use Types Packs/Day Years Used Date Smoking Tobacco: Never Assessed Education Answer Date Recorded Are you interested in more education? Not on matias e 08/01/2024 Are you concerned about learning? Not on file 08/01/2024 No 08/01/2024 No 08/01/2024 Digital Access Answer Date Recorded No 08/01/2024 No 08/01/2024 Reliable internet access at home? Not on file 08/01/2024 Device with a working camera? Not on file Comments Unknown Sex and Gender Information Value Date Recorded Sex Assigned at Not on file Legal Sex Female 1:03 PM EST Gender Identity Not on file Sexual Orientation Not on file Last Filed Vital Signs Vital Sign Reading Time Taken Comments Blood Pressure 128/84 08/01/2024 2:45 PM EST Pulse 89 08/01/2024 2:45 PM EST Temperature 36.9 C (98.4 F) 08/01/2024 2:45 PM EST Respiratory Rate 18 08/01/2024 2:45 PM EST Oxygen Saturation 97% 08/01/2024 2:45 PM EST Inhaled Oxygen Concentration - - Weight - - Height - - Body Mass Index - - Plan of Treatment Health Maintenance Due Date Last Done Comments DEPRESSION SCREENING 2005 SMOKING Hx and SMOKELESS TOB ACCO SCREENING 2006 HEPATITIS C SCREENING 2011 HIV ONE-TIME SCREENING (18-6 5 YEARS) 2011 PAP SMEAR 2014 INFLUENZA VACCINE (#1) 2025 COVID-19 VACCINE (2024-2 6 season) 2025 Adult Td,Tdap Booster 10/12/2026 10/12/2016 HEPATITIS A VACCINES Aged Out No long er eligible based on patient's age to complete this topic HIB VACCINES Aged Out No longer eligi ble based on patient's age to complete this topic MENINGOCOCCAL VACCINES (ACWY) Aged Out No longer eligible based on patient's age to complete this topic MENINGOCOCCAL VACCINES (B) Aged Out N o longer eligible based on patient's age to complete this topic PNEUMOCOCCAL VACCINES (0-49 years) Aged Out No longer eligible based on patient's age to complete this topic Medical Devices Not on file Insurance [facility] MEDICARE REPLACEMENT [facility] MEDICARE REPLACEMENT [place] [id number] [place] [address] MEDICARE REPLACEMENT [place] [id number] [place] [address] MEDICARE REPLACEMENT [id number] [place] [address] MEDICARE REPLACEMENT [place] [id number] [employer] MEDICARE REPLACEMENT Care Teams Print Washer Relationship Specialty Start Date End Date Niko Porter MD [address] [place] [phone] PCP - General Internal Medicine 08/01/24 Additional Source Comments The information contained in this document represents components of the legal health record. It is not the complete legal health record.[facility]
--- OUTSIDE RECORDS SUMMARY | 2025-07-07 08:03 | XMS_ITS | Clinical Summary ---
Author Organization [employer] Address [address] [facility] [address] [place] [address] Care Team Providers Care Manager Sign Name Role Phone Unavailable Primary Care Provider Unavailabl e Social History Tobacco Use Types Packs/Day Years Used Date Smoking Tobacco: Never Assessed Comments Unknown Sex and Gender Information Value Date Recorded Sex Assigned at Female 07/05/2022 2:46 PM EST Legal Sex Female 2:46 PM EST Gender Identity Choose not to disclose 2:46 PM EST Sexual Orientation Choose not to disclose 2021 2:46 PM EST Plan of Treatment Health Maintenance Due Date Last Done Comments Depression Screening 1993 HIV Screening 1993 SDOH Screening 1993 Disability Screening 1993 Alcohol/Substance Use Screening 2005 Tobacco Screening 2005 Family Planning (PISQ) 02/28/2008 HPV Vaccines (1 - 3-dose series) 02/28/2008 Hepatitis C Screening 2011 DTaP/Tdap/Td Vaccines (1 - Tdap) 02/28/2012 Hepatitis B Vaccines (1 of 3 - 19+ 3-dose series) 02/28/2012 Pap Smear 2014 Cervical Cancer Screening 2023 HPV/Cotest 2023 COVID-19 Vaccine (1 - 2024-2 6 season) 2025 Influenza Vaccine (#1) 2025 Zoster Vaccines (1 of 2) 2043 RSV Patients and Pa tients Aged 60 years or older (1 - 1-dose 75+ series) 02/28/2068 HIB Vaccines Aged Out No longer eligi ble based on patient's age to complete this topic Hepatitis A Vaccines Aged Out No long er eligible based on patient's age to complete this topic IPV Vaccines Aged Out No longer eligi ble based on patient's age to complete this topic Meningococcal B Vaccine Aged Out No l onger eligible based on patient's age to complete this topic Meningococcal Vaccine Aged Out No ramy ned eligible based on patient's age to complete this topic Pneumococcal Vaccine: Pediat rics (0 to 5 Years) and At-Risk Patients (6 to 49) Years Aged Out No longer eligible b ased on patient's age to complete this topic RSV under 20 months Aged Out No longe r eligible based on patient's age to complete this topic Rotavirus Vaccines Aged Out No longer eligible based on patient's age to complete this topic Insurance [facility] DUAL COMPLETE
[2025-07-07 08:06] VITALS: BP 123/55; PULSE 72; RESP 16; TEMP 36.6; O2SAT 100; BMI 36.7
== END 2025-07-07 08:32 | disposition home or self-care (01) ==
LOC: HO.HMCFM 08:00
PROVIDERS: PCP Nurse Practitioner Family; Visit Provider Nurse Practitioner Family
DX: Z00.00 Encounter for general adult medical examination without abnormal findings (principal); E66.9 Obesity, unspecified; Z68.36 Body mass index [BMI] 36.0-36.9, adult; K86.81 Exocrine pancreatic insufficiency; F41.1 Generalized anxiety disorder; E55.9 Vitamin D deficiency, unspecified; K58.1 Irritable bowel syndrome with constipation; M25.50 Pain in unspecified joint; R09.82 Postnasal drip; Z28.21 Immunization not carried out because of patient refusal

== ENCOUNTER 2025-07-17 13:46 | Outpatient (REF) | payer OTHER, SELFPAY ==
[2025-07-17 22:45] LABS: Bacterial Vaginosis PCR POSITIVE (Negative); Candida Group PCR NOT DETECTED (Not Detect); Candida glab krusei PCR NOT DETECTED (Not Detect); Trichomonas vaginalis PCR NOT DETECTED (Not Detect)
[2025-07-17 23:17] LABS: CT PCR NOT DETECTED (Not Detect.); NG PCR NOT DETECTED (Not Detect.)
== END 2025-07-17 13:47 | disposition home or self-care (01) ==
LOC: HO.LNP 13:46
PROVIDERS: PCP Nurse Practitioner Family; Visit Provider Advanced Practice Midwife
DX: Z01.419 Encounter for gynecological examination (general) (routine) without abnormal findings (principal); Z30.09 Encounter for other general counseling and advice on contraception; Z30.46 Encounter for surveillance of implantable subdermal contraceptive; E66.9 Obesity, unspecified; N63.0 Unspecified lump in unspecified breast; Z20.2 Contact with and (suspected) exposure to infections with a predominantly sexual mode of transmission; Z68.36 Body mass index [BMI] 36.0-36.9, adult
CPT/HCPCS: 81515; 87491; 87591

== ENCOUNTER 2025-07-17 13:46 | Outpatient (AMB) | payer OTHER, SELFPAY ==
--- NOTE | 2025-07-17 14:02 | MHC.OFFVIS ---
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 Automobile Damage Appraiser: Automobile Damage Appraiser Present (Jayleen) Accompanied by: Self / Same As Patient Allergies No Known Allergies (No Known Allergies*) Allergy (Verified 07/17/25 14:06) Medication List - Last Reconciled 07/17/25 by Susanne Elias CNM bupropion HCl XL 150 mg PO QAM etonogestrel (Nexplanon) subdermal ibuprofen 800 mg PO Q8H PRN ipratropium bromide 2 sprays intranasal BID [id number]-kvfacpfm-fuwfloi (pork) 36,000-114,000- 180,000 unit (Creon) 2 caps PO BID Is last menstrual period known: Yes Last menstrual period: 07/06/25 Post menopausal: No Patient : No HPI HPI GUT CLEANER annual exam: Details: 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 She is on the Nexplanon she is in year 4 she [facility] and she said they told her that even though the package insert say 3 years it could be used up to 5 years and they did give her a card stating replacement in 2025. She is going to double check the date on the card and if she were to get another 1 which she has is inclined to do at this point [facility] job managing her Nexplanon in the past. And she also like supporting [facility]. She is not having any negative side effects the unintended that she had in the past was from when she was recommended to not repeat the Nexplanon in the past and had a messed up with pills and got and from then on she has used the Nexplanon she is very certain and has been from age 13 that she does not want to have children. She has a history of anxiety and depression and she says it is being very well managed with the Wellbutrin. She has switched her primary care provider in the last year and she feels good about that as well. She feels fine about her weight and has actually lost some weight and she is not actually trying but she did become more active because she got a job and she is active in the job and also she joined [employer] last winter so she has been very active on all of the machines. She has no particular worries about STIs but is open to getting tested and she also reviewed her lab work in her portal with me. [facility] Medical History (Updated 07/17/25 @ 16:31 by Susanne Elias CNM) Chronic idiopathic constipation Vitamin D deficiency Obesity (BMI 30-39.9) Intermittent palpitations IBS (irritable bowel syndrome) Generalized anxiety disorder Surgical History H/O removal of cyst History of incision and drainage History of hemorrhoidectomy Family History Father CAD (coronary artery disease) HTN (hypertension) Bipolar disorder Substance use disorder Mental health disorder Mother Thyroid disorder Bipolar disorder Substance use disorder Mental health disorder Maternal Aunt Bipolar disorder Substance use disorder Mental health disorder Maternal Uncle Myocardial infarction Bipolar disorder Substance use disorder Mental health disorder Paternal Aunt Bipolar disorder Substance use disorder Mental health disorder Paternal Uncle Bipolar disorder Substance use disorder Mental health disorder Social History Housing: House Alcohol intake: never Patient Tobacco Use Status: Never used Tobacco e-Cigarette/Vaping Use: Never Used Second Hand Smoke Exposure: Yes (her partner smokes heavy) service: No Current occupational status: unemployed Current occupational exposures/hazards: No Cognitive needs: No Hearing needs: No Vision needs: Yes Female Reproductive History Menstrual Age of Menarche: 10 Date of last menstrual period: 07/06/25 control method: implanted (Nexplanon) Total pregnancies: 0 Date of last pap smear: 03/26/24 (negative pap smear) Physical Exam Exam Exam: Patient has Nexplanon is palpable in left upper arm in correct place just below the skin. Vital Signs: Last Vital Signs BP 122/72 07/17/25 14:20 BMI result Body Mass Index 36.1 Const General: healthy appearing, comfortable, no acute distress, well developed and alert Nutritional Appearance: average body habitus Orientation/consciousness: patient oriented x3 Limitations: no limitations HEENT Head: Yes normocephalic Neck Neck: Yes normal visual inspection Chest Other: Very subtle thickened horizontal ropey area at 12:00 left breast ,and also on right breast, at 12:00 there is a thickening of tissue though less noticeable. Chest palpation & inspection: normal inspection of the chest Breast/axilla inspection: normal inspection of the breasts and normal inspection of the axillae Breast/axilla palpation: normal palpation of the breasts and normal palpation of the axillae Resp Effort & Inspection: normal respiratory effort GI Inspection: Yes normal to inspection, No Abdominal wall edema and No distended Palpation (GI): Soft to palpation and nontender Other: External exam within normal limits vagina pink and moist nulliparous cervix pink moist healthy appearing. Normal amount of white discharge gives possible appearance of yeast however patient is not inflamed and has no symptoms whatsoever no yeast curd, Cervix long close thick mobile nontender deep in pelvis slightly challenging to feel uterus deep in pelvis midposition mobile nontender bladder is full adnexa nontender good tone with Kegel. General: Yes bladder normal to palpation External Female Exam: normal external appearance and normal appearance of the urethra Speculum Exam - Vagina: normal appearance of the vagina, normal palpation and normal vaginal discharge Speculum Exam - Cervix: normal appearance of the cervix, normal palpation and nontender Bimanual exam- vagina & uterus: normal bimanual exam, normal palpation, uterine size normal, bladder normal to palpation, consistency normal, normal palpation, uterine mobility normal, uterine shape normal, No Cervical tenderness present, non-tender and no cervical motion tenderness Bimanual Exam- Adnexa, other: normal adnexae, no masses, normal and No adnexal tenderness Neuro General: patient oriented x3 Assessment & Plan Assessment & Plan (1) control counseling: Code(s): Z30.09 - Encounter for other general counseling and advice on contraception Category: Medical (2) Well woman exam with routine gynecological exam: Code(s): Z01.419 - Encounter for gynecological examination (general) (routine) without abnormal findings Category: Medical (3) Cervical cancer screening: Onset Date: ~03/2024 Comment: 03/26/2024 Pap is negative with negative HPV. Code(s): Z12.4 - Encounter for screening for malignant neoplasm of cervix Category: Medical (4) Encounter for monitoring of etonogestrel implant: Code(s): Z30.46 - Encounter for surveillance of implantable subdermal contraceptive Category: Medical (5) Obesity (BMI 30-39.9): Comment: Has lost weight is working out at [employer]. Code(s): E66.9 - Obesity, unspecified Category: Medical (6) Palpable mass of breast: Code(s): N63.0 - Unspecified lump in unspecified breast Category: Medical Plan -----Discussed in this visit the following: healthy balanced diet, regular and consistent exercise, getting recommended health screens, doing the best she can for her particular health concerns, kegel exercises, pap smear screening and followup recommendations, mammography screening and SBE, normal changes in cycles in her life stage--- . Discussed her life journey with control she is at this point content with continuing with the Nexplanon I did ask her to double check what was written on the [facility] as to when it expires so she does not let it . At this point she thinks she would continue with it. If she ever decides not to for what ever reason as she is older now she may choose to have a discussion with the surgeon about getting her tubes tied. She feels it did not affect her mental health in any way which is 1 reason why 1 provider had recommended against her using the Nexplanon in the past but she feels that it is okay in that way and is also not contributing to weight gain. Additionally during this exam, I palpated a slightly row be area of tissue at 12:00 on left breast and a slight thickening of tissue at 12:00 on the right breast. Out of an abundance of caution I am going to order a diagnostic mammogram for both breasts and targeted ultrasounds of both breasts. Patient is in agreement with the plan. If there is any abnormality I will then refer to breast surgery. Orders: Orders US breast RT limited Today N63.0 - Unspecified lump in unspecified breast MM tomosynthesis diagnostic BI Today N63.0 - Unspecified lump in unspecified breast US breast LT limited Today N63.0 - Unspecified lump in unspecified breast Coding Level of Care Code Est Pt Prev Care [id number]) Diagnoses control counseling Z30.09 Well woman exam with routine gynecological exam Z01.419 Cervical cancer screening Z12.4 Encounter for monitoring of etonogestrel implant Z30.46 Obesity (BMI 30-39.9) E66.9 Palpable mass of breast N63.0
[2025-07-17 14:20] VITALS: BP 122/72; BMI 36.1
--- OUTSIDE RECORDS SUMMARY | 2025-07-17 19:14 | XMS_ITS | Clinical Summary ---
Author Organization [employer] Address [address] [facility] [address] [place] [address] Care Team Providers Care Prepress Manager Name Role Phone Unavailable Primary Care Provider [...] patient's age to complete this topic Insurance [facility] DUAL COMPLETE
--- OUTSIDE RECORDS SUMMARY | 2025-07-17 19:14 | XMS_ITS | Encounter Summary ---
Author Organization [employer] Address [address] [facility] [address] [place] [address] Care Team Providers Care Medical Accounts Receivable Specialist Name Role Phone Unavailable Primary Care Provider Unavailabl e Reason for Visit * Reason Onset Date Comments New Patient 04/24/2023 Encounter Details Date Type Department Care Team (Late st Contact Info) Description 04/24/2023 Telephone [facility] MEDICINE [address] [place], [place] [phone] Blas Graham MD [address] [place] [address] New Patient Social History Tobacco Use Types [...] PM EDT Tc to , to offer WAX PATTERN COATER Appt, pt states is not interested at the time for Fisher Line with Facility or has foundother Facility. Advised if change of mind to please give facility a call at [phone] documented in this encounter Plan of Treatment Not on file documented as of this encounter Visit Diagnoses Not on filedocumented in this encounter
--- OUTSIDE RECORDS SUMMARY | 2025-07-17 19:14 | XMS_ITS | Clinical Summary ---
Author Organization [facility] Address [address] [facility] [address] [place] [phone] Phone Care Team Providers Care Scraper Tender Name Role Phone Niko Porter MD Primary [...] topic Medical Devices Not on file Insurance [facility] MEDICARE REPLACEMENT [facility] MEDICARE REPLACEMENT [place] [id number] [place] [address] MEDICARE REPLACEMENT [place] [id number] [place] [address] MEDICARE REPLACEMENT [id number] [place] [address] MEDICARE REPLACEMENT [place] [id number] [employer] MEDICARE REPLACEMENT Care Teams Scraper Tender Relationship Specialty Start Date End Date Niko Porter MD [address] [place] [phone] PCP - General Internal Medicine 08/01/24 Additional Source Comments The information contained in this document represents components of the legal health record. It is not the complete legal health record.[facility]
== END 2025-07-17 16:26 | disposition home or self-care (01) ==
LOC: HO.HWS 13:46
PROVIDERS: PCP Nurse Practitioner Family; Visit Provider Advanced Practice Midwife
DX: Z01.419 Encounter for gynecological examination (general) (routine) without abnormal findings (principal); E66.9 Obesity, unspecified; Z68.36 Body mass index [BMI] 36.0-36.9, adult; Z30.09 Encounter for other general counseling and advice on contraception; Z30.46 Encounter for surveillance of implantable subdermal contraceptive; N63.0 Unspecified lump in unspecified breast
CPT/HCPCS: 99395; 99459